=== PATIENT | male | born 1935 | race Caucasian/White ===

== ENCOUNTER → 2017-04-07 | Outpatient (CLI) | payer MEDICARE ==
[~2017-04-07] MED LIST: AMOXICILLIN500 MG PO; Amoxicillin/Clavulanate K PO; CELEBREX200 MG PO; CLOPIDOGREL75 MG PO; ELAVIL25 MG PO; FIORINAL PO; GABAPENTIN300 MG PO; LEVAQUIN500 MG PO; MAGNESIUM OXID400 MG PO; NORVASC5 MG PO; PENICILLIN VK PO; PROTONIX40 MG/ML PO; TAMSULOSIN HCL0.4 MG; TAMSULOSIN HCL0.4 MG PO; TIZANIDINE HCL4 M1; XARELTO10 MG PO; Z HYTRIN PO; Z.0.FLAGYL500 MG PO; Z.0.LEVAQUIN500 MG PO; Z.0.LISINOPRIL-HCT1 PO; Z.0.ZOCOR20 MG PO; Z.0.ZYLOPRIM300 MG PO; [UNRECOGNIZED DRUG - OTHER] PO
--- NOTE | 2017-04-07 15:10 | Diagnostic Imaging Report ---
PROCEDURE: CT CHEST WITHOUT CONTRAST CT scan of the chest WITHOUT intravenous contrast, using standard protocol. TECHNIQUE: The chest was scanned utilizing a multidetector helical scanner from the apex to the level of the adrenal glands. No IV contrast was administered. Coronal and sagittal multiplanar reformations were obtained. COMPARISON: Chest CT 09/28/2016 INDICATIONS: SHORT OF BREATH, LUNG INFECTION FINDINGS: Lines/tubes: None. Lungs and Airways: Increase in the diffuse tiny centrilobular nodules in the right lung (for example now in the right upper lobe on series 3 image 42 compared with series 3 image 44 on the prior exam). Previous patchy ground glass opacities are not visualized. Similar appearing patchy ground glass opacities are noted in the right anterior apex (series 3 image 22), posterior right upper lobe (series 3 image 30). No evidence of a focal consolidative pneumonia. Stable 4 mm nodule in the superior segment of the left lower lobe (series 3 image 60). The patchy ground glass opacities in the left lung have resolved. Pleura: The pleural spaces are clear. Heart and mediastinum: Stable coarse calcification which may be in the lateral right thyroid lobe or adjacent to the thyroid. No significant mediastinal, hilar or axillary lymphadenopathy is seen. The heart and pericardium are within normal limits. Slight ascending aortic ectasia measuring 4 cm. Main pulmonary artery measures 2.7 cm. Three-vessel coronary artery calcifications. Soft tissues: Normal. Abdomen: Limited views of the upper abdomen show no abnormality within the visualized unenhanced liver, spleen, pancreas, or kidneys. The visualized portions of the adrenal glands are normal. Gastrojejunostomy sutures are partially visualized related to gastric bypass. Bones: No acute or aggressive osseous lesions. Multiple old right anterior rib fractures. Stable mild wedge deformity of a T11. Degenerative changes of the lower cervical spine and cervicothoracic junction. IMPRESSION: 1. Worsening centrilobular nodules in the right lung suggestive of worsening atypical infection or inflammation. Patchy ground glass opacities in the right lung persist and have resolved in the left lung. 2. Mild ascending aortic ectasia. 3. Stable T11 wedge deformity. Dictated by: Gary Lord M.D. on 04/07/2017 at 15:09 Electronically approved by: Gary Lord M.D. on 04/07/2017 at 15:09
== END ==
LOC: CT 13:53
PROVIDERS: ATTEND Internal Medicine Pulmonary Disease
DX: J84.10 Pulmonary fibrosis, unspecified (principal)
CPT/HCPCS: 71250

== ENCOUNTER → 2017-04-22 | Day surgery (SDC) | payer MEDICARE ==
[2017-04-21 12:48] LABS: BASOPHILS # (AUTO) 0.1 (0.0-0.1); BASOPHILS % 0.8 % (0.0-1.0); EOSINOPHILS # (AUTO) 0.3 (0.0-0.4); EOSINOPHILS % 3.3 % (0.0-6.0); HEMATOCRIT 38.2 % (38.2-49.6); LYMPHOCYTES # (AUTO) 2.1 (1.0-3.2); LYMPHOCYTES % 20.8 % (18.0-39.1); MEAN CORPUSCULAR HEMOGLOBIN 23.1 pg (28-32); MEAN CORPUSCULAR HGB CONC 28.8 g/dL (31-35); MEAN CORPUSCULAR VOLUME 80.3 fL (81-99); MONOCYTES # (AUTO) 0.9 (0.2-0.8); MONOCYTES % 8.5 % (4.4-11.3); NEUTROPHILS # (AUTO) 6.7 (2.1-6.9); NEUTROPHILS % 66.3 % (38.7-80.0); PLATELET COUNT 173 x10e3/uL (140-360); RED BLOOD COUNT 4.76 x10e6/uL (4.3-5.7)
[2017-04-21 14:19] LABS: POLYCHROMASIA FEW; RBC MORPHOLOGY COMMENT NORMAL
[2017-04-21 14:20] LABS: ANISOCYTOSIS SLIGHT; HYPOCHROMASIA SLIGHT; PLATELET ESTIMATE ADEQUATE; PLATELET MORPHOLOGY COMMENT NORMAL
--- NOTE | 2017-04-21 18:20 | Diagnostic Imaging Report ---
PROCEDURE: X-RAY CHEST, TWO VIEWS COMPARISON: Chest x-ray 09/01/15, CT chest 04/07/17 INDICATIONS: PRE-ADMISSION CHEST X-RAY FOR LUNG INFECTION FINDINGS: LUNGS: Diffusely hyperinflated. A calcified granuloma in the posterior costophrenic angle is stable. No soft tissue mass or infiltrate by x-ray. Vascular markings are normal. PLEURA: No effusions or pneumothorax. HEART \T\ MEDIASTINUM: The heart is within normal size-limits. There are prominent pericardial fat pads. Mild aortic ectasia is stable. BONES \T\ SOFT TISSUES: Diffusely demineralized. No focal osseous lesions. CONCLUSION: Diffuse hyperinflation suggestive of COPD. No acute cardiopulmonary process. Dictated by: Toro Castro M.D. on 04/21/2017 at 18:20 Electronically approved by: Toro Castro M.D. on 04/21/2017 at 18:20
[~2017-04-22] MED LIST changes: +EPINEPHRINE HCL INJ 1 MG/ML AMP ONE; +FENTANYL CITRATE/PF 100MCG/2 ML INJ ONE; +LIDOCAINE HCL 2% 30 ML TUBE ONE; +LIDOCAINE HCL 2% LOCAL INJ 5 ML SDV VIAL INJ ONE; +LIDOCAINE HCL 4% 50 ML BTL ONE; +MIDAZOLAM HCL 2 MG/2 ML VIAL ONE; +OXYMETAZOLINE HCL 0.05% NAS 1 SPRAY BTL ONE; +PROPOFOL IV EMULSION 10 MG/ML 20 ML VIAL ONE; +SEVOFLURANE INHAL SOLN 250 ML PEN BTL ONE
--- OUTSIDE RECORDS SUMMARY | 2017-04-22 12:38 | XMS REPORT ---
Author Author [facility] Address Unknown Phone Unavailable Care Team Providers Care A Auxiliary Name Role Phone NEO VEGA Unavailable Unavailable Problems This patient has no known problems. Allergies, Adverse Reactions, Alerts This patient has no known allergies or adverse reactions. Medications This patient has no known medications. Results Test Description Test Time Test Comments Text Results Atomic Results Result Comments CHEST 2 VIEWS [place] [address] Patient Name: ESPINOZA WEAVER MR #: [id number] : 1935 Age/Sex: 81/M Req #: [id number] Adm Physician: Ordered by: MARY ELLEN SAMANIEGO MD Report #: [id number] Location: ENDO Room/Bed: Procedure: [id number] DX/CHEST 2 VIEWS Exam Date: 04/21/17 Exam Time : 1255 REPORT STATUS: Signed PROCEDURE: X-RAY CHEST, TWO VIEWS COMPARISON: Chest x-ray 09/01/15, CT chest 04/07/17 INDICATIONS: PRE- ADMISSION CHEST X-RAY FOR LUNG INFECTION FINDINGS: LUNGS: Diffusely hyperinflated. A calcified granuloma in the posterior costophrenic angle is stable. No soft tissue mass or infiltrate by x-ray. Vascular markings are normal. PLEURA: No effusions or pneumothorax. HEART T MEDIASTINUM: The heart is within normal size-limits. There are prominent pericardial fat pads. Mild aortic ectasia is stable. BONES T SOFT TISSUES: Diffusely demineralized. No focal osseous lesions. CONCLUSION: Diffuse hyperinflation suggestive of COPD. No acute cardiopulmonary process. Dictated by: Asad Castro M.D. on 01/2018 at 18:20 Electronically approved by: Asad Castro M.D. on 01/2018 at 18:20 Dictated By: ASAD CASTRO MD 19 Transcribed By : DAKOTA on 04/21/171819 COPY TO: MARY ELLEN SAMANIEGO MD CT CHEST WO [place] [address] Patient Name: ESPINOZA WEAVER MR #: [id number] : 1935 Age/Sex: 81/M Req #: [id number] Adm Physician: Ordered by: NEO VEGA MD Report #: [id number] Location: CT Room/Bed: Procedure: [id number] CT/ CT CHEST WO Exam Date: 04/07/17 Exam Time: 1422 REPORT STATUS: Signed PROCEDURE: CT CHEST WITHOUT CONTRAST CT scan of the chest WITHOUT intravenous contrast, using standard protocol. TECHNIQUE: The chest was scanned utilizing a multidetector helical scanner from the apex to the level of the adrenal glands. No IV contrast was administered. Coronal and sagittal multiplanar reformations were obtained. COMPARISON: Chest CT 09/28/2016 INDICATIONS: SHORT OF BREATH, LUNG INFECTION FINDINGS: Lines/tubes: None. Lungs and Airways: Increase in the diffuse tiny centrilobular nodules in the right lung (for example now in the right upper lobe on series 3 image 42 compared with series 3 image 44 on the prior exam). Previous patchy ground glass opacities are not visualized. Similar appearing patchy ground glass opacities are noted in the right anterior apex (series 3 image 22), posterior right upper lobe (series 3 image 30). No evidence of a focal consolidative pneumonia. Stable 4 mm nodule in the superior segment of the left lower lobe (series 3 image 60). The patchy ground glass opacities in the left lung have resolved. Pleura: The pleural spaces are clear. Heart and mediastinum: Stable coarse calcification which may be in the lateral right thyroid lobe or adjacent to the thyroid. No significant mediastinal, hilar or axillary lymphadenopathy is seen. The heart and pericardium are within normal limits. Slight ascending aortic ectasia measuring 4 cm. Main pulmonary artery measures 2.7 cm. Three-vessel coronary artery calcifications. Soft tissues: Normal. Abdomen: Limited views of the upper abdomen show no abnormality within the visualized unenhanced liver, spleen, pancreas, or kidneys. The visualized portions of the adrenal glands are normal. Gastrojejunostomy sutures are partially visualized related to gastric bypass. Bones: No acute or aggressive osseous lesions. Multiple old right anterior rib fractures. Stable mild wedge deformity of a T11. Degenerative changes of the lower cervical spine and cervicothoracic junction. IMPRESSION: 1. Worsening centrilobular nodules in the right lung suggestive of worsening atypical infection or inflammation. Patchy ground glass opacities in the right lung persist and have resolved in the left lung. 2. Mild ascending aortic ectasia. 3. Stable T11 wedge deformity. Dictated by: Gary Kaufman M.D. on 04/07/2017 at 15: 09 Electronically approved by: Gary Kaufman M.D. on 04/07/2017 at 15: 09 Dictated By: GARY KAUFMAN MD [id number] Transcribed By: DAKOTA on 04/07/17 1501 COPY TO: NEO VEGA MD CT CHEST WO [place] [address] Patient Name: ESPINOZA WEAVER MR #: [id number] : 1935 Age/Sex: 81/M Req #: [id number] Adm Physician: Ordered by: NEO VEGA MD Report #: [id number] Location: CT Room/Bed: Procedure: [id number] CT/ CT CHEST WO Exam Date: 12/24/16 Exam Time: 1205 REPORT STATUS: Signed EXAM: CT Chest WITHOUT contrast INDICATION: Dyspnea COMPARISON: 09/18/2016 TECHNIQUE: The Chest was scanned utilizing a multidetector helical scanner without the use of IV contrast. Coronal and sagittal reformations were obtained. Reformatted axial MIP images were obtained and reviewed. IV CONTRAST: None COMPLICATIONS: None RADIATION DOSE: Total DLP: 528 mGy*cm Estimated effective dose: (DLP x 0.015 x size factor) mSv CTDIvol has been reviewed. It is below the limits set by the Radiation Protocol Committee (RPC). FINDINGS: Lines and Tubes: None. Lower Neck: Visualized thyroid gland unremarkable. Heart and Great Vessels: The aorta and main pulmonary artery measure 32 and 31 mm. respectively. The cardiothoracic radio measures 12/29. No pericardial effusion present. Advanced coronary artery vascular calcifications present with probable PCI changes, incompletely evaluated due to motion. Lymph Nodes: Scattered small mediastinal lymph nodes, not enlarged by size criteria. Hilar regions suboptimally evaluated given lack of IV contrast. Lungs: No pleural effusion. There is no pneumothorax. Trachea and central bronchi are unremarkable. Moderate predominantly tree-in-bud opacities present throughout the right upper lobe, middle lobe, and lower lobe, similar to slightly worse. No focal consolidation identified. Upper abdomen: Post surgical changes of the bowel. Otherwise no acute findings. Bones and Soft Tissues: No acute findings. IMPRESSION: 1. Predominantly tree-in-bud opacities right upper lobe, middle lobe, and lower lobe, slightly progressed. Findings most consistent with an acute infectious/inflammatory process such as bronchiolitis. Atypical processes such as mycobacterium cannot be excluded. Signed by: Dr. Rio Moss MD on 12/25/2016 1:14 PM Dictated By: RIO MOSS MD 13 Transcribed By: JERI on 12/25/161313 COPY TO: NEO VEGA MD
[2017-04-22 13:00] LABS: INR 1.06
[2017-04-22 13:01] LABS: PARTIAL THROMBOPLASTIN TIME 23.6 seconds (23.8-35.5)
--- NOTE | 2017-04-22 15:33 | History and Physical ---
This is a patient of Dr. Scooter Archuleta (Buddy) and Dr. Luc oTny. Patient with a history of persistent dyspnea, atypical pulmonary infiltrates and pneumonia. Recently completed long-term course of antibiotics with a persistent right upper lobe nodular infiltrate. Other ground-glass infiltrates have cleared. He has a history of renal colic. FAMILY HISTORY: Positive for cancer. SOCIAL HISTORY: The patient has smoked and has chewed tobacco. 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 . PAST HISTORY: Had right nephrectomy in 1964 and gastric surgery. Hypertension and renal stones. He remains dyspneic, but his cough has resolved. VITAL SIGNS: Temperature 97.8, blood pressure 129/69. O2 saturation 93% on room air. HOME MEDICATIONS: Included allopurinol, Celebrex, Neurontin, Incruse, lisinopril, omeprazole, Xarelto, tizanidine, Flomax and simvastatin. PHYSICAL EXAMINATION GENERAL: Burly white male in no acute distress. HEENT: Head is normocephalic and atraumatic. NECK: Flanagan neck. CARDIOVASCULAR: Regular rhythm. RESPIRATORY: Diminished breath sounds but clear. ABDOMEN: Nontender. EXTREMITIES: Not edematous. PLAN: Proceed with bronchoscopy and lavage. Risks with probable yield of transbronchial biopsy were discussed. He agreed to forego this and to proceed with bronchoscopy and lavage. If endobronchial lesion was found, bronchial biopsy was to be permitted. Job#: [id number]
--- NOTE | 2017-04-22 16:02 | Operative Report ---
DATE OF PROCEDURE: April 22, [address] Scooter Archuleta, Dr. Tony. Patient with dyspnea, slowly resolving pneumonia over many months, persistent micronodular right upper lobe infiltrate. MAC anesthesia was provided by Dr. Bundy. Patient was bronchoscoped through a number 5 LMA. There was consistent weakness of the bronchial tubes, moderate bronchial malacia and collapse. Moderate amount of thick secretions noted above the cords and in the bronchial tree. No obstructing lesions were seen. Lavage was performed in the right upper lobe bronchial orifice. Patient tolerated the procedure well. Job#: [id number] EV
[2017-04-22 16:23] LABS: BODY FLUID APPEARANCE CLOUDY; BODY FLUID COLOR RED; BODY FLUID TYPE BRONCHIAL WASHING
[2017-04-22 16:24] LABS: RBC,BODY FLUID 4955 cells/uL; WBC,BODY FLUID 752 cells/uL
[2017-04-22 16:47] LABS: EOSINOPHILS,BODY FLUID 1 %; LYMPHOCYTES,BODY FLUID 6 %; MONO/MACROPHG,BODY FLUID 7 %; NEUTROPHILS,BODY FLUID 86 %
== END | disposition home or self-care (01) ==
LOC: OR 12:36
PROVIDERS: ATTEND Internal Medicine Pulmonary Disease
DX: J44.9 Chronic obstructive pulmonary disease, unspecified (principal); I25.10 Atherosclerotic heart disease of native coronary artery without angina pectoris; I10 Essential (primary) hypertension; Z01.810 Encounter for preprocedural cardiovascular examination; Z01.812 Encounter for preprocedural laboratory examination; Z01.818 Encounter for other preprocedural examination; Z90.5 Acquired absence of kidney; Z87.01 Personal history of pneumonia (recurrent); Z87.891 Personal history of nicotine dependence; Z80.9 Family history of malignant neoplasm, unspecified
CPT/HCPCS: 31624; 36415 ×2; 71046; 85025; 85610; 85730; 87071; 87075; 87102; 87116; 87186; 87205; 87206 ×2; 88112; 88305; 89051; 93005; J2001; J2250; 31623; J0171

== ENCOUNTER 2017-12-18 15:56 | Emergency (ER) | payer MEDICARE ==
[~2017-12-18] VITALS: Ht 177.8 cm; Wt 83.9 kg
[~2017-12-18 15:56] MED LIST changes: -EPINEPHRINE HCL INJ 1 MG/ML AMP ONE; -FENTANYL CITRATE/PF 100MCG/2 ML INJ ONE; -LIDOCAINE HCL 2% 30 ML TUBE ONE; -LIDOCAINE HCL 2% LOCAL INJ 5 ML SDV VIAL INJ ONE; -LIDOCAINE HCL 4% 50 ML BTL ONE; -MIDAZOLAM HCL 2 MG/2 ML VIAL ONE; -OXYMETAZOLINE HCL 0.05% NAS 1 SPRAY BTL ONE; -PROPOFOL IV EMULSION 10 MG/ML 20 ML VIAL ONE; -SEVOFLURANE INHAL SOLN 250 ML PEN BTL ONE
[2017-12-18 17:41] LABS: BILIRUBIN,URINE NEGATIVE (NEGATIVE); CLARITY,URINE HAZY (CLEAR); COLOR,URINE YELLOW (YELLOW); KETONES,URINE NEGATIVE (NEGATIVE); LEUKOCYTE ESTERASE ,URINE NEGATIVE (NEGATIVE); NITRITE,URINE NEGATIVE (NEGATIVE); PROTEIN,URINE DIPSTICK NEGATIVE (NEGATIVE); URINE UROBILINOGEN 0.2 mg/dL (0.2 - 1)
[2017-12-18 17:42] LABS: BACTERIA,URINE FEW /HPF; EPITHELIAL CELLS,URINE FEW /LPF; RBC,URINE 0-5 /HPF (0-5); WBC,URINE (MAN) 0-5 /HPF (0-5)
[2017-12-18 20:51] LABS: BASOPHILS % 0.3 % (0.0-1.0); EOSINOPHILS # (AUTO) 0.1 (0.0-0.4); EOSINOPHILS % 0.4 % (0.0-6.0); HEMATOCRIT 33.2 % (38.2-49.6); HEMOGLOBIN 9.7 g/dL (14.0-18.0); LYMPHOCYTES # (AUTO) 1.2 (1.0-3.2); LYMPHOCYTES % 10.6 % (18.0-39.1); MEAN CORPUSCULAR HEMOGLOBIN 23.1 pg (28-32); MEAN CORPUSCULAR HGB CONC 29.2 g/dL (31-35); MONOCYTES % 8.8 % (4.4-11.3); NEUTROPHILS % 79.4 % (38.7-80.0); PLATELET COUNT 218 x10e3/uL (140-360); RED CELL DISTRIBUTION WIDTH 17.1 % (11.7-14.4)
[2017-12-18 21:03] LABS: ALBUMIN 3.9 g/dL (3.5-5.0); ALBUMIN/GLOBULIN RATIO 1.3 (0.8-2.0); ANION GAP 16.6 mmol/L (8-16); CALCIUM 9.3 mg/dL (8.4-10.2); CREATININE, SERUM 2.47 mg/dL (0.72-1.25); POTASSIUM 4.6 mmol/L (3.5-5.1)
[2018-01-09] MEDS ORDERED: POTASSIUM CITR10 MEQ PO (12:26)
[2018-01-09] MEDS ORDERED: MAGNESIUM OXID400 MG PO (12:26)
== END 2017-12-18 22:18 | disposition home or self-care (01) ==
LOC: ER 15:56
DX: R30.0 Dysuria (principal); R33.9 Retention of urine, unspecified; N40.1 Benign prostatic hyperplasia with lower urinary tract symptoms; I10 Essential (primary) hypertension; E78.5 Hyperlipidemia, unspecified; M10.9 Gout, unspecified
CPT/HCPCS: 36415; 51700; 80053; 81001; 85025; 87086; 99283

== ENCOUNTER → 2018-01-12 | Day surgery (SDC) | payer MEDICARE ==
[2018-01-09 13:03] LABS: BASOPHILS # (AUTO) 0.1 (0.0-0.1); BASOPHILS % 0.8 % (0.0-1.0); EOSINOPHILS # (AUTO) 0.2 (0.0-0.4); EOSINOPHILS % 2.5 % (0.0-6.0); HEMOGLOBIN 10.3 g/dL (14.0-18.0); LYMPHOCYTES # (AUTO) 1.4 (1.0-3.2); MEAN CORPUSCULAR HEMOGLOBIN 22.2 pg (28-32); MEAN CORPUSCULAR HGB CONC 28.6 g/dL (31-35); MEAN CORPUSCULAR VOLUME 77.4 fL (81-99); MONOCYTES # (AUTO) 0.7 (0.2-0.8); MONOCYTES % 7.7 % (4.4-11.3); NEUTROPHILS # (AUTO) 6.5 (2.1-6.9); NEUTROPHILS % 72.8 % (38.7-80.0); PLATELET COUNT 284 x10e3/uL (140-360); RED BLOOD COUNT 4.65 x10e6/uL (4.3-5.7); RED CELL DISTRIBUTION WIDTH 16.2 % (11.7-14.4)
[2018-01-09 13:24] LABS: ANION GAP 12.5 mmol/L (8-16); BLOOD UREA NITROGEN 16 mg/dL (7-26); BUN/CREATININE RATIO 14 (6-25); CALCIUM 9.2 mg/dL (8.4-10.2); CARBON DIOXIDE 29 mmol/L (22-29); CHLORIDE 103 mmol/L (98-107); CREATININE, SERUM 1.13 mg/dL (0.72-1.25); EST GLOMERULAR FILTRATION RATE > 60 ML/MIN (60-); GLUCOSE 99 mg/dL (74-118); POTASSIUM 4.5 mmol/L (3.5-5.1); SODIUM 140 mmol/L (136-145)
--- NOTE | 2018-01-09 13:46 | Diagnostic Imaging Report ---
EXAMINATION: PA and lateral views of the chest. COMPARISON: CT chest without contrast 12/24/2016 CLINICAL HISTORY: Preoperative study urological procedure DISCUSSION: Lungs are well-inflated. No focal consolidation, pleural effusion, or pneumothorax. Stable cardiomediastinal contour with tortuosity and atherosclerotic calcification of the thoracic aorta. No acute osseous abnormality. IMPRESSION: No acute cardiopulmonary abnormalities. Signed by: Dr. Elbert Degroot M.D. on 01/09/2018 1:43 PM
[~2018-01-12] MED LIST changes: +BELLADONNA/OPIUM 60 MG SUPP PR ONE; +CEFTRIAXONE SOD 1 GM VIAL ONE; +DEXAMETHASONE SOD PHOS INJ 4 MG/ML VIAL ONE; +EPHEDRINE SULFATE INJ 50 MG/10 ML SYR ONE; +FENTANYL CITRATE/PF 100MCG/2 ML INJ ONE; +GENTAMICIN 80MG/NS 100 ML 200 ML IV ONE; +IOPAMIDOL 610MG/1ML 300 MG/ML VIAL IV ONE; +LIDOCAINE HCL 1% 2 ML AMP ONE; +LIDOCAINE HCL 2% LOCAL INJ 5 ML SDV VIAL INJ ONE; +MORPHINE SULFATE 2 MG/ML SYR ONE; +ONDANSETRON HCL INJ 2 MG/ML VIAL ONE; +POTASSIUM CITR10 MEQ PO; +PROPOFOL IV EMULSION 10 MG/ML 20 ML VIAL ONE; +SEVOFLURANE INHAL SOLN 250 ML PEN BTL ONE
[2018-01-12 09:20] VITALS: BP 124/78
--- NOTE | 2018-01-12 21:54 | Operative Report ---
DATE OF PROCEDURE: January 12, 2018 PREOPERATIVE DIAGNOSES 1. Obstructive BPH. 2. Urinary tract infections. POSTOPERATIVE DIAGNOSES 1. Obstructive BPH. 2. Urinary tract infections. OPERATIONS PERFORMED 1. Cystourethroscopy with bilateral ureteral catheterization and retrograde ureteropyelography (separate procedure performed for urinary tract infections). 2. Interpretation of retrograde ureteropyelography. 3. Supervision of fluoroscopy. No radiologist present. 4. Cystourethroscopy with transurethral resection of the prostate utilizing the plasma button electrode. ANESTHESIA: General. COMPLICATIONS: None. CLINICAL SUMMARY: Christopher Osborne is an 82-year-old man with a solitary left kidney. 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 The patient has a history of prior urolithiasis obstructing his solitary left kidney requiring stenting as well as ureteroscopic management. The patient has failed to follow up as schedule and has failed to reschedule. He presented emergently in urinary retention, was evaluated, was by urodynamic study found to have a high pressure, low flow finding on a pressure volume study. The patient is brought to the operating room today for the above procedures. He is aware of the risks of bleeding, infection, injury to adjacent structures, incontinence, impotence, need for additional procedures and elected to proceed. OPERATIVE PROCEDURE IN DETAIL: Informed consent was verified. Christopher Osborne was properly identified, taken to the operating room, placed on the cystoscopy table in supine position. Anesthesia was uneventfully begun. The patient was then carefully and gently re-positioned in the dorsal lithotomy position with all pressure points well padded. His genitalia were prepared and draped in usual sterile fashion. The 22.5-Montenegrin cystourethroscope sheath with the visual obturator in place was atraumatically inserted into the patient's urethra. It was guided down the urethra which exhibited wide caliber nonobstructing urethral stricture disease throughout the penile urethra. We passed the normal sphincteric region, went through the prostate bed which was significant for bilobar prostatic hypertrophy with kissing lateral lobes and visual obstruction. We entered the patient's bladder and panendoscopy revealed grade 1 trabeculations; but no tumors, no stones, no diverticula. Normally positioned and configured ureteral orifices were identified. An 8-Montenegrin catheter was used to cannulate each ureter and retrograde ureteral pyelograms were performed. Interpretation of retrograde ureteropyelography: Contrast was instilled in retrograde fashion bilaterally. The left side was unremarkable. There were no stones, no tumors. The calices were sharp and delicate. There was no hydronephrosis. The ureter was unremarkable. Unobstructed drainage was observed. The right hand side exhibited an abrupt cutoff at the level of the proximal ureter corresponding to the prior nephrectomy. There were no suspicious filling defects and unobstructed drainage of this ureter was observed fluoroscopically. The cystoscope was withdrawn. Resectoscope was atraumatically placed. We utilized the plasma button electrode to vaporize the prostate from the bladder neck too, but never past the verumontanum and down to the surgical capsule. Pinpoint electrocautery was utilized to achieve hemostasis. There were numerous prostatic stones that were released from the junction between the transition and the peripheral zone at the apical region posteriorly on either side of the verumontanum. These stones were evacuated and discarded. The resectoscope was withdrawn. A Galarza catheter was placed. Placed on continuous irrigation with completely clear efflux. A belladonna and opium suppository was placed revealing a 35-g prostate, smooth, non-fluctuant without any nodules. The patient was then uneventfully reversed from anesthesia and taken to the recovery room in stable condition. There were no complications associated with the procedure. The patient tolerated the procedure well. Plans will be to discharge the patient home should he do well in the recovery room. Have him remove the catheter at home in 3 days and we plan to follow him up in several weeks to perform uroflowmetry and bladder ultrasonography in the office, and of course, I encouraged him to maintain urological followup on an ongoing basis in the future. Job#: [id number] cc:BETI CERON MD
== END | disposition home or self-care (01) ==
LOC: OR 05:06
PROVIDERS: ATTEND Urology
DX: N40.1 Benign prostatic hyperplasia with lower urinary tract symptoms (principal); N13.8 Other obstructive and reflux uropathy; R33.8 Other retention of urine; N17.9 Acute kidney failure, unspecified; N39.0 Urinary tract infection, site not specified; N35.919 Unspecified urethral stricture, male, unspecified site; N42.0 Calculus of prostate; N32.89 Other specified disorders of bladder; Q54.9 Hypospadias, unspecified; I10 Essential (primary) hypertension; Z90.5 Acquired absence of kidney; Z01.810 Encounter for preprocedural cardiovascular examination; Z01.812 Encounter for preprocedural laboratory examination; Z01.818 Encounter for other preprocedural examination; Z79.02 Long term (current) use of antithrombotics/antiplatelets; Z99.81 Dependence on supplemental oxygen; Z86.718 Personal history of other venous thrombosis and embolism; Z87.442 Personal history of urinary calculi
CPT/HCPCS: 36415; 52005; 52601; 71046; 74420; 80048; 85025; 93005; C1758; J0696; J1100; J1580; J2001 ×2; J2270; J2405; J2704; Q9967

== ENCOUNTER → 2018-04-07 | Outpatient (CLI) | payer MEDICARE ==
[~2018-04-07] MED LIST changes: -BELLADONNA/OPIUM 60 MG SUPP PR ONE; -CEFTRIAXONE SOD 1 GM VIAL ONE; -DEXAMETHASONE SOD PHOS INJ 4 MG/ML VIAL ONE; -EPHEDRINE SULFATE INJ 50 MG/10 ML SYR ONE; -FENTANYL CITRATE/PF 100MCG/2 ML INJ ONE; -GENTAMICIN 80MG/NS 100 ML 200 ML IV ONE; -IOPAMIDOL 610MG/1ML 300 MG/ML VIAL IV ONE; -LIDOCAINE HCL 1% 2 ML AMP ONE; -LIDOCAINE HCL 2% LOCAL INJ 5 ML SDV VIAL INJ ONE; -MORPHINE SULFATE 2 MG/ML SYR ONE; -ONDANSETRON HCL INJ 2 MG/ML VIAL ONE; -PROPOFOL IV EMULSION 10 MG/ML 20 ML VIAL ONE; -SEVOFLURANE INHAL SOLN 250 ML PEN BTL ONE
--- NOTE | 2018-04-07 15:14 | Diagnostic Imaging Report ---
EXAMINATION: CT scan of the chest without contrast. TECHNIQUE: Spiral CT images of the chest were performed from the lung apices to the level of the adrenal glands. No intravenous contrast was administered per referring physician request. Coronal and sagittal reformatted images were obtained. COMPARISON: 12/24/2016 CLINICAL HISTORY:Dyspnea on exertion DISCUSSION: ABSENCE OF INTRAVENOUS CONTRAST DECREASES SENSITIVITY FOR DETECTION OF FOCAL LESIONS AND VASCULAR PATHOLOGY. LINES/TUBES: None. LUNGS AND AIRWAYS: As before, fairly extensive tree-in-bud nodular opacities involving the right upper, right middle, and right lower lobes, with relative sparing of the apical segment of the right upper lobe and superior segment of the right lower lobe. Less extensive findings are noted in the perihilar regions of the left upper and lower lobes. Scattered groundglass nodules in the left upper lobe for example series 3 image 42. Trachea, mainstem bronchi, lobar, and segmental bronchi are patent. Calcified granuloma right lower lobe. PLEURA: No pneumothorax or pleural effusions. HEART AND MEDIASTINUM: Visualized portions of the thyroid gland are normal. No ectasia or aneurysmal dilatation of the thoracic aorta. Pulmonary outflow tract is of normal caliber. Atherosclerotic coronary artery calcifications. No pericardial effusion. LYMPH NODES: No axillary, hilar, or mediastinal lymphadenopathy. ABDOMEN: Visualized portions of the liver, gallbladder, spleen, pancreas, and adrenals are unremarkable. Partially visualized exophytic lesion projecting from the upper pole of the left kidney with average internal attenuation 40 Hounsfield units. Postsurgical changes of the distal stomach. BONES AND SOFT TISSUES: No focal soft tissue abnormalities. No osseous destructive lesions. Stable mild anterior compression deformity of the lower thoracic spine. IMPRESSION: Slight progression of predominant tree-in-bud opacities involving the right upper, middle, and lower lobes relative to the examination 12/24/2016. Findings compatible with inflammatory bronchiolitis or atypical mycobacterial infection. Bronchoscopy may be of benefit for further evaluation given chronicity and/or recurrence of findings. Atherosclerotic vascular disease. Partially visualized exophytic lesion projecting from the left kidney, which may reflect a hyperdense cyst or solid mass. CT or MRI of the abdomen renal mass protocol or renal ultrasound may be considered for further evaluation. Signed by: Dr. Elbert Degroot M.D. on 04/07/2018 3:11 PM
== END ==
LOC: CT 13:22
PROVIDERS: ATTEND Internal Medicine Pulmonary Disease
DX: R06.09 Other forms of dyspnea (principal)
CPT/HCPCS: 71250

== ENCOUNTER → 2018-07-01 | Outpatient (CLI) | payer MEDICARE ==
--- NOTE | 2018-07-01 15:56 | Diagnostic Imaging Report ---
Exam: Abdominal film Clinical History: Absent right kidney, kidney stones Comparison: None. DISCUSSION: No suspicious calcifications are identified projecting over the left renal shadow or expected ureteral course. Bowel gas pattern shows no dilated, air-filled loops of bowel. No mass effect or organomegaly. Multilevel degenerative disc changes of the lumbar spine. IMPRESSION: No plain film evidence of urolithiasis. Signed by: Dr. Elbert Degroot M.D. on 07/01/2018 3:52 PM
== END ==
LOC: RAD 14:53
PROVIDERS: ATTEND Urology
DX: N20.0 Calculus of kidney (principal)
CPT/HCPCS: 74018

== ENCOUNTER → 2018-11-25 | Outpatient (CLI) | payer MEDICARE ==
--- NOTE | 2018-11-25 14:57 | Diagnostic Imaging Report ---
EXAM: CT Chest WITHOUT intravenous contrast 11/25/2018 1:08 PM INDICATION: Shortness of breath COMPARISON: Chest CT of 04/07/2018 TECHNIQUE: Chest was scanned utilizing a multidetector helical scanner from the lung apex through the level of the adrenal glands without administration of IV contrast. Coronal and sagittal reformations were obtained. Routine protocol was performed. IV CONTRAST: None RADIATION DOSE: Total DLP: 454.3 mGy*cm. Dose modulation, iterative reconstruction, and/or weight based adjustment of the mA/kV was utilized to reduce the radiation dose to as low as reasonably achievable. COMPLICATIONS: None FINDINGS: LINES/ TUBES: None. LUNGS AND AIRWAYS: The central airways are patent. Mild right greater than left bronchial wall thickening. Scattered right lower lobe predominant centrilobular and tree-in-bud nodules. This is improved compared to the prior chest CT of 04/07/2018. Bilateral lower lobe dependent subsegmental atelectasis right greater than left. Left lower lobe 5 mm pulmonary nodule (series 3 image 65) is unchanged dating back to at least 12/24/2016. No new suspicious pulmonary nodules. Right lower lobe calcified granuloma. PLEURA: No pleural effusion or pneumothorax. HEART AND MEDIASTINUM: The thyroid gland is normal. No mediastinal, hilar or axillary lymphadenopathy. The heart is not enlarged. No pericardial effusion. Diffuse atherosclerotic calcifications involve the coronary arteries with scattered athetotic calcifications of the aorta and great vessels. The thoracic aorta is ectatic, measuring up to 4.1 cm.. UPPER ABDOMEN: Limited noncontrast images of the upper abdomen demonstrate no focal abnormality of the partially visualized liver, gallbladder, spleen, adrenals, or pancreas. The kidneys are not visualized. BONES: No acute osseous injury. No suspicious lytic or blastic lesions. SOFT TISSUES: Unremarkable. IMPRESSION: Interval improvement in right lung lower lobe predominant centrilobular and tree-in-bud nodules, likely reflecting a resolving infectious/inflammatory process. Left lower lobe 5 mm pulmonary nodule is unchanged dating back to at least 12/24/2016 and is thus likely benign. No further imaging follow-up is needed. Atherosclerotic calcifications including of the coronary arteries. Signed by: Shaw Davidson MD on 11/25/2018 2:53 PM
== END ==
LOC: CT 13:01
PROVIDERS: ATTEND Internal Medicine Pulmonary Disease
DX: R06.02 Shortness of breath (principal)
CPT/HCPCS: 71250

== ENCOUNTER → 2019-04-06 | Outpatient (CLI) | payer MEDICARE ==
--- NOTE | 2019-04-06 14:10 | Diagnostic Imaging Report ---
Renal ultrasound Clinical History: Renal failure Discussion: Sonographic evaluation of the kidneys is performed. The right kidney has normal size and cortical echogenicity. The right kidney has been removed. The left kidney measures 13.5 cm in length. There is no hydronephrosis or shadowing renal calculus. In the inferior pole left kidney, a 1.8 x 1.6 x 1.7 cm anechoic lesion with thin internal septation is noted. No perinephric fluid collection is seen. Survey images of the bladder demonstrate no abnormality. Impression: 1. Status post right nephrectomy. 2. Left renal cysts measuring up to 1.8 cm in diameter within internal septation as described. Signed by: Dr. Amos Liang MD on 04/06/2019 2:08 PM
--- NOTE | 2019-04-06 14:36 | Diagnostic Imaging Report ---
Exam: KUB Clinical history: Acute renal failure Comparison: July 01, 2018 Findings: There is no evidence of radiopaque stones along the course of bilateral renal collecting system. Mildly prominent air-filled small bowel loops are noted in the left upper quadrant which may represent ileus. There is no gross evidence of pneumoperitoneum. 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 Impression: 1. No radiographic evidence of nephrolithiasis. 2. Mildly prominent small bowel loops in the left upper quadrant which may represent ileus. Signed by: Dr. Amos Liang MD on 04/06/2019 2:34 PM
== END ==
LOC: US 13:17
PROVIDERS: ATTEND Urology
DX: N17.9 Acute kidney failure, unspecified (principal)
CPT/HCPCS: 74018; 76770

== ENCOUNTER 2019-07-30 07:51 | Inpatient (IN) | payer MEDICARE, OTHER ==
[~2019-07-30] VITALS: Ht 172.7 cm; Wt 90.7 kg
[2019-07-30 08:45] LABS: BASOPHILS # (AUTO) 0.1 (0.0-0.1); BASOPHILS % 0.4 % (0.0-1.0); EOSINOPHILS # (AUTO) 0.1 (0.0-0.4); EOSINOPHILS % 0.8 % (0.0-6.0); HEMATOCRIT 45.3 % (38.2-49.6); HEMOGLOBIN 14.8 g/dL (14.0-18.0); LYMPHOCYTES # (AUTO) 0.7 (1.0-3.2); LYMPHOCYTES % 4.8 % (18.0-39.1); MEAN CORPUSCULAR HEMOGLOBIN 29.7 pg (28-32); MEAN CORPUSCULAR HGB CONC 32.7 g/dL (31-35); MONOCYTES # (AUTO) 1.1 (0.2-0.8); MONOCYTES % 7.7 % (4.4-11.3); NEUTROPHILS # (AUTO) 12.7 (2.1-6.9); NEUTROPHILS % 85.9 % (38.7-80.0); PLATELET COUNT 172 x10e3/uL (140-360); RED BLOOD COUNT 4.98 x10e6/uL (4.3-5.7); RED CELL DISTRIBUTION WIDTH 13.3 % (11.7-14.4)
[2019-07-30] MEDS ORDERED: CEFEPIME 1GM/NS 0.9% 50 ML 50 ML IV STA (08:54)
--- NOTE | 2019-07-30 08:58 | Diagnostic Imaging Report ---
EXAMINATION: CHEST SINGLE (PORTABLE) INDICATION: Fever COMPARISON: Chest CT 11/25/2018 FINDINGS: LINES/TUBES:EKG leads overlie the chest. LUNGS:The lungs are moderately inflated. Patchy opacities throughout the right lung and at the left lung base. PLEURA:No pleural effusion or pneumothorax. MEDIASTINUM:The cardiomediastinal silhouette appears normal in size and shape. BONES/SOFT TISSUES:No acute osseous injury. ABDOMEN:No free air under the diaphragm. IMPRESSION: Patchy opacities in the right lung and left lung base are concerning for pneumonia in the proper clinical setting. Signed by: Shaw Davidson MD on 07/30/2019 8:55 AM
[2019-07-30] MEDS ORDERED: ACETAMINOPHEN 325 MG TAB PO ONE (09:00)
[2019-07-30 09:15] LABS: ALANINE AMINOTRANSFERASE 15 IU/L (0-55); ALBUMIN 3.1 g/dL (3.5-5.0); ALBUMIN/GLOBULIN RATIO 1.4 (0.8-2.0); ALKALINE PHOSPHATASE 64 IU/L (40-150); ANION GAP 11.7 mmol/L (8-16); BLOOD UREA NITROGEN 17 mg/dL (7-26); BUN/CREATININE RATIO 16 (6-25); CARBON DIOXIDE 23 mmol/L (22-29); CHLORIDE 110 mmol/L (98-107); CREATINE KINASE 142 IU/L (30-200); CREATININE, SERUM 1.04 mg/dL (0.72-1.25); EST GLOMERULAR FILTRATION RATE > 60 ML/MIN (60-); GLUCOSE 86 mg/dL (74-118); POTASSIUM 3.7 mmol/L (3.5-5.1); SODIUM 141 mmol/L (136-145)
[2019-07-30] MEDS ORDERED: SODIUM CHLORIDE 0.9% 1000ML 1,000 ML IV STA (10:05)
--- NOTE | 2019-07-30 10:11 | Emergency Department Note ---
History of Present Illnes History of Present Illness Chief Complaint: General Medicine Complaints History of Present Illness This is a 83 year old male arrives to the ED for confusion per family, patient known to have UTIs and has been having difficulty voiding. She noted to be febrile upon arrival concerns of possible urosepsis confirmed at 0950- (not at the start of this time). Historian: Patient Arrival Mode: [facility] Treatment NUT SORTER: IV Onset quality: unable to specify Progression: unable to specify Relieving factors: none Associated symptoms: Reports fever/chills Treatments prior to arrival: none Past Medical/Family History Physician Review I have reviewed the patient's past medical and family history. Any updates have been documented here. Past Medical History Recent Fever: Yes Clinical Suspicion of Infectio: Yes New/Unexplained Change in Ment: Yes Past Medical History: COPD Other Medical History: PATIENT HAD RIGHT KIDNEY REMOVED Other Surgery: EXPLORATORY LAP RIGHT NEPHRECTOMY JULY 06, 2015 STENT PLACED IN LEFT KIDNEY Social History Smoking Cessation: Never Smoker Alcohol Use: None Any Illegal Drug Use: No TB Exposure/Symptoms: No Physically hurt or threatened: No Family History Family history of heart diseas: No Other Last Tetanus: OOD Any Pre-Existing Lines (PICC,: No Is patient up to date on immun: Yes Last Flu: UNKNOWN Last Pneumovax: UNKNOWN Review of Systems ROS Narrative Unable to obtain ROS: Unable to obtain due to, altered mental status Review of Systems Constitutional: Reports as per HPI, Reports chills, Reports fever EENTM: Reports no symptoms Cardiovascular: Reports no symptoms Respiratory: Reports no symptoms Gastrointestinal: Reports no symptoms Genitourinary: Reports no symptoms Musculoskeletal: Reports no symptoms Integumentary: Reports no symptoms Neurological: Reports no symptoms Psychological: Reports no symptoms Endocrine: Reports no symptoms Hematological/Lymphatic: Reports no symptoms Physical Exam Related Data Allergies: Coded Allergies: No Known Drug Allergies (Verified Allergy, Mild, 08/06/15) Triage Vital Signs Vital Signs Date Time Temp Pulse Resp B/P (MAP) Pulse Ox O2 Delivery O2 Flow Rate FiO2 07/30/19 08:41 101.6 99 18 136/78 93 Physical Exam CONSTITUTIONAL Constitutional: Present well-developed, Present well-nourished, Present obese HENT HENT: Present normocephalic, Present atraumatic, Present oropharynx clear/moist, Present nose normal HENT L/R: Present left ext ear normal, Present right ext ear normal EYES Eyes: Reports PERRL, Reports conjunctivae normal NECK Neck: Present ROM normal PULMONARY Pulmonary: Present effort normal, Present breath sounds normal CARDIOVASCULAR Cardiovascular: Present regular rhythm, Present heart sounds normal, Present capillary refill normal, Present normal rate GASTROINTESTINAL Abdominal: Present soft, Present nontender, Present bowel sounds normal GENITOURINARY Genitourinary: Present exam deferred SKIN Skin: Present warm, Present dry MUSCULOSKELETAL Musculoskeletal: Present ROM normal NEUROLOGICAL Neurological: Present alert PSYCHOLOGICAL Results Laboratory Result Diagram: 07/30/19 0813 07/30/19 0813 Laboratory Laboratory Tests Test 07/30/19 09:20 07/30/19 08:13 Lactic Acid Level 2.4 mmol/L (0.5-2.0) White Blood Count 14.73 x10e3/uL (4.8-10.8) Red Blood Count 4.98 x10e6/uL (4.3-5.7) Hemoglobin 14.8 g/dL (14.0-18.0) Hematocrit 45.3 % (38.2-49.6) Mean Corpuscular Volume 91.0 fL (81-99) Mean Corpuscular Hemoglobin 29.7 pg (28-32) Mean Corpuscular Hemoglobin Concent 32.7 g/dL (31-35) Red Cell Distribution Width 13.3 % (11.7-14.4) Platelet Count 172 x10e3/uL (140-360) Neutrophils (%) (Auto) 85.9 % (38.7-80.0) Lymphocytes (%) (Auto) 4.8 % (18.0-39.1) Monocytes (%) (Auto) 7.7 % (4.4-11.3) Eosinophils (%) (Auto) 0.8 % (0.0-6.0) Basophils (%) (Auto) 0.4 % (0.0-1.0) Neutrophils # (Auto) 12.7 (2.1-6.9) Lymphocytes # (Auto) 0.7 (1.0-3.2) Monocytes # (Auto) 1.1 (0.2-0.8) Eosinophils # (Auto) 0.1 (0.0-0.4) Basophils # (Auto) 0.1 (0.0-0.1) Absolute Immature Granulocyte (auto 0.06 x10e3/uL (0-0.1) Sodium Level 141 mmol/L (136-145) Potassium Level 3.7 mmol/L (3.5-5.1) Chloride Level 110 mmol/L (98-107) Carbon Dioxide Level 23 mmol/L (22-29) Anion Gap 11.7 mmol/L (8-16) Blood Urea Nitrogen 17 mg/dL (7-26) Creatinine 1.04 mg/dL (0.72-1.25) Estimat Glomerular Filtration Rate > 60 ML/MIN (60-) BUN/Creatinine Ratio 16 (6-25) Glucose Level 86 mg/dL (74-118) Calcium Level 7.0 mg/dL (8.4-10.2) Total Bilirubin 0.8 mg/dL (0.2-1.2) Aspartate Amino Transf (AST/SGOT) 17 IU/L (5-34) Alanine Aminotransferase (ALT/SGPT) 15 IU/L (0-55) Alkaline Phosphatase 64 IU/L (40-150) Creatine Kinase 142 IU/L (30-200) Creatine Kinase MB 2.20 ng/mL (0-5.0) Troponin I 0.014 ng/mL (0-0.300) Total Protein 5.3 g/dL (6.5-8.1) Albumin 3.1 g/dL (3.5-5.0) Globulin 2.2 g/dL (2.3-3.5) Albumin/Globulin Ratio 1.4 (0.8-2.0) Lab results reviewed: Yes Imaging Imaging results reviewed: Yes Impressions IMPRESSION: Patchy opacities in the right lung and left lung base are concerning for pneumonia in the proper clinical setting. Critical Care Time Total Critical Care Time (min): 45 Critical care time exclusive o: separately billable procedures Critcal care necessary due to: sepsis Assessment & Plan Medical Decision Making MDM Severe Sepsis Time: 949 1. Source (time: 854 ) PNA on CXR 2. SIRS (time: 840) T 101.6 HR 99 3. Organ Dysfunction (time: 949) 2.4 Interventions: Blood cultures collected Lactic acid collected Broad Spectrum antibiotics Lactic acid #1: 2.4 Lactic acid #2: 2.0 While patient was she does severe sepsis with suspected pneumonia is unclear if this is bacterial versus viral at time of admission. Even patient's recent travel to [place] we'll treat this as a possible Coban 19 exposures/viral pneumonia therefore normal supple 1 guidelines were deviated from. Patient is admitted for respiratory and telemetry monitoring. Assessment & Plan Final Impression: (1) Severe sepsis Depart Disposition: ADMITTED Last Vital Signs Date Time Temp Pulse Resp B/P (MAP) Pulse Ox O2 Delivery O2 Flow Rate FiO2 07/30/19 09:35 95 19 148/96 93 07/30/19 08:41 101.6 Home Meds Reported Medications Potassium Citrate (POTASSIUM CITRATE) 10 Meq Tablet.er, 99 MG PO DAILY, #30 CAP 01/09/18 Magnesium Oxide (MAGNESIUM OXIDE) 400 Mg Tablet, 400 MG PO DAILY, TAB 01/09/18 Rivaroxaban (XARELTO) 10 Mg Tablet, 20 MG PO DAILY 04/22/17 Tizanidine Hcl (TIZANIDINE HCL) 4 Mg Capsule, PRN 04/21/17 Gabapentin (GABAPENTIN) 300 Mg Capsule, 300 MG PO BID, #60 CAP 04/21/17 Tamsulosin Hcl (TAMSULOSIN HCL) 0.4 Mg Cap.er.24h 04/21/17 Celecoxib (CELEBREX) 200 Mg Capsule, 200 MG PO DAILY 07/06/15 Lisinopril/Hydrochlorothiazide (Lisinopril-Hctz 11/21.5 Tb) 1 Each Tablet, 1 EACH PO QD 05/22/11 Allopurinol (Zyloprim) 300 Mg Tablet, 100 MG PO QD 05/22/11 Simvastatin (Zocor) 20 Mg Tablet, 20 MG PO HS 05/22/11 Medications in the ED Acetaminophen 650 mg ONCE ONCE PO Last administered on 07/30/19at 09:22; Admin Dose 650 MG; Start 07/30/19 at 09:00; Stop 07/30/19 at 09:01; Status DC Cefepime HCl 50 ml @ 100 mls/hr Q24H STAT IV Last administered on 07/30/19at 09:21; Admin Dose 100 MLS/HR; Start 07/30/19 at 08:54; Stop 07/30/19 at 09:23; Status DC THOMAS JONES, Jul 30, 2019 10:10
--- NOTE | 2019-07-30 10:49 | NUR ---
PATIENTS - JESÚS WEAVER CALLED TO LEAVE HER NUMBER [phone]
[2019-07-30 10:56] LABS: CLARITY,URINE CLEAR (CLEAR); COLOR,URINE YELLOW (YELLOW)
[2019-07-30 10:57] LABS: BILIRUBIN,URINE NEGATIVE (NEGATIVE); KETONES,URINE NEGATIVE (NEGATIVE); LEUKOCYTE ESTERASE ,URINE NEGATIVE (NEGATIVE); NITRITE,URINE NEGATIVE (NEGATIVE); PROTEIN,URINE DIPSTICK NEGATIVE (NEGATIVE); URINE UROBILINOGEN 0.2 mg/dL (0.2 - 1)
[2019-07-30 11:07] LABS: WBC,URINE (MAN) 0-5 /HPF (0-5)
[2019-07-30 11:08] LABS: BACTERIA,URINE RARE /HPF; EPITHELIAL CELLS,URINE RARE /LPF; RBC,URINE 0-5 /HPF (0-5)
--- NOTE | 2019-07-30 14:49 | NUR ---
consult [id number]
[2019-07-30] MEDS: CEFTRIAXONE SOD 1 GM/NS 50 ML 50 ML IV SCH (15:10)
[2019-07-30] MEDS: AZITHROMYCIN 500MG/NS 250 ML 250 ML IV SCH (15:42)
[2019-07-30] MEDS ORDERED: GUAIFENESIN 600MG/DEXTROMETHORPHAN 30MG TABSR PO PRN (17:30)
[2019-07-30] MEDS: GABAPENTIN 300 MG CAP PO SCH (17:30)
[2019-07-30] MEDS ORDERED: HYDRALAZINE HCL 20 MG/ML VIAL IV PRN (17:30)
[2019-07-30] MEDS ORDERED: ONDANSETRON HCL INJ 2MG/ML 2ML 2 MG/ML VIAL IV PRN (17:30)
--- NOTE | 2019-07-30 19:25 | Consultation ---
DATE OF CONSULTATION: Pulmonary Critical Care Consultation CHIEF COMPLAINT: Confusion and infiltrate on chest x-ray. HISTORY OF PRESENT ILLNESS: The patient is an 83-year-old man. The patient reports a history of a prior nephrectomy many years ago. He also has a history of a ureteral stone and kidney problems. He drove to [place] recently and according to the family, he was more confused, although he denies it. He does not complain of dyspnea or cough. He is not complaining of chest pain. In the emergency department, he was found to have an infiltrate on his chest x-ray, consistent with pneumonia. PAST MEDICAL HISTORY: 1. Nephrolithiasis. 2. Hypertension. PAST SURGICAL HISTORY: 1. Status post nephrectomy. 2. Status post hemigastrectomy and vagotomy with a Rodriguez-en-Y reconstruction. 3. History of exploratory laparotomy. FAMILY HISTORY: Family history is not obtainable. SOCIAL HISTORY: The patient does not smoke or drink. REVIEW OF SYSTEMS: There is no history of fever. He has some confusion according to the family, although he denies it. He is not complaining of headache. He has no neck pain. He is not complaining of chest pain. He does note some mild cough. There is no dyspnea. He has no abdominal pain. There is no nausea or vomiting. PHYSICAL EXAMINATION: VITAL SIGNS: The blood pressure is 105/83, saturation is 97% on room air, and the pulse is 61. His T-max is 101.6, although he is afebrile now. HEENT: Shows no facial swelling or erythema. CARDIAC: Reveals regular rate and rhythm with normal S1 and S2. LUNGS: Auscultation of lungs reveals rhonchorous breath sounds bilaterally. There is no wheezing. ABDOMEN: Soft and nontender. There is no rebound or guarding. EXTREMITIES: Shows no leg edema. LABORATORY DATA: White blood cell count is 14.7 and the hemoglobin is 14.8. Platelet count is 172. The BUN to creatinine ratio is 17 to 1.04 and the potassium is 3.7. Albumin is 3.1. LFTs are within normal limits. RADIOGRAPHIC DATA: Chest x-ray shows patchy opacities in the right and left lung base. IMPRESSION: 1. Community-acquired pneumonia with sepsis, present on admission. 2. History of nephrolithiasis. 3. Hypertension. 4. History of prior nephrectomy. PLAN: 1. The patient will be started on antibiotics. 2. Isolation and COVID-19 testing. 3. Oxygen as needed. 4. Judicious use of IV fluids. 5. Echocardiogram. MD PAUL Skaggs/FRANKLYN /[id number]
--- NOTE | 2019-07-30 22:00 | Consultation ---
DATE OF CONSULTATION: REASON FOR CONSULTATION: Pneumonia. HISTORY OF PRESENT ILLNESS: This patient, who is an 83-year-old. He tells me he is doing well. He went to bed, he started to have fever and chills. He was brought by his family because he was earlier confused this morning, but right now he is alert and oriented. He said he is feeling fair. REVIEW OF SYSTEMS: At the present time, he said he is feeling well. HEENT: Negative. PULMONARY: Negative. CARDIAC: Negative. : Negative. GI: Negative. PAST MEDICAL HISTORY: Nephrectomy on the right, exploratory laparotomy, stent on left kidney. PAST SURGICAL HISTORY: As above. SOCIAL HISTORY: There is no smoking, drug abuse, or alcohol abuse. FAMILY HISTORY: Otherwise noncontributory. LABORATORY DATA: White count was 14.7 and hemoglobin 14.8. Sodium 141, potassium 3.7, and creatinine 1.04. His COVID-19 is still pending. MEDICATIONS: He is currently on Flomax, Neurontin, and allopurinol. PHYSICAL EXAMINATION: GENERAL: He is currently alert and oriented. Does not seem to be in acute distress. VITAL SIGNS: Stable, currently afebrile. HEENT: Not icteric. NECK: Supple. CHEST: Clear. HEART: S1 and S2. No S3, S4, or murmur. ABDOMEN: Soft. IMPRESSION: Pneumonia, present on admission, community-acquired. PLAN: To put him on Rocephin 2 g daily and azithromycin 500 mg daily. Obtain blood cultures, sputum cultures. Recheck CBC. Recheck chem panel. Await COVID-19. Oxygen as needed. Further recommendations to follow. We will reassess again shortly. MD ROJAS Arriaza/FRANKLYN /[id number]
--- NOTE | 2019-07-30 22:35 | NUR ---
Patient received via wheelchair from ER. AAO x 3. Patient had no complaints of pain. Respirations even and non-labored. Admission history obtained. Initial physical assessment performed. Safety measures implemented. Patient oriented to room, call light and plan of care. Patient instructed to call for assistance when needed. Call light within reach.
[2019-07-30 22:57] VITALS: BP_SYST 147; BP_SYST 149; BP_DIAS 73; BP_DIAS 77
[2019-07-30] MEDS: SIMVASTATIN 20 MG TAB PO SCH (23:29)
[2019-07-31] VITALS (7 sets, daily range): BP systolic 125–170; BP diastolic 75–92
[2019-07-31 05:32] LABS: BASOPHILS % 0.5 % (0.0-1.0); EOSINOPHILS # (AUTO) 0.4 (0.0-0.4); EOSINOPHILS % 4.1 % (0.0-6.0); HEMATOCRIT 42.4 % (38.2-49.6); HEMOGLOBIN 13.6 g/dL (14.0-18.0); LYMPHOCYTES # (AUTO) 1.7 (1.0-3.2); MEAN CORPUSCULAR HEMOGLOBIN 30.2 pg (28-32); MEAN CORPUSCULAR HGB CONC 32.1 g/dL (31-35); MONOCYTES # (AUTO) 0.6 (0.2-0.8); MONOCYTES % 7.2 % (4.4-11.3); NEUTROPHILS # (AUTO) 5.9 (2.1-6.9); PLATELET COUNT 151 x10e3/uL (140-360); RED BLOOD COUNT 4.51 x10e6/uL (4.3-5.7); RED CELL DISTRIBUTION WIDTH 13.2 % (11.7-14.4)
[2019-07-31 05:53] LABS: ALANINE AMINOTRANSFERASE 15 IU/L (0-55); ALBUMIN 3.2 g/dL (3.5-5.0); ALBUMIN/GLOBULIN RATIO 1.2 (0.8-2.0); ALKALINE PHOSPHATASE 75 IU/L (40-150); ANION GAP 8.4 mmol/L (8-16); BLOOD UREA NITROGEN 15 mg/dL (7-26); BUN/CREATININE RATIO 14 (6-25); CALCIUM 8.8 mg/dL (8.4-10.2); CARBON DIOXIDE 29 mmol/L (22-29); CHLORIDE 105 mmol/L (98-107); CREATININE, SERUM 1.05 mg/dL (0.72-1.25); EST GLOMERULAR FILTRATION RATE > 60 ML/MIN (60-); GLUCOSE 100 mg/dL (74-118); POTASSIUM 4.4 mmol/L (3.5-5.1); SODIUM 138 mmol/L (136-145)
[2019-07-31] MEDS: ALLOPURINOL 100 MG TAB PO SCH (06:15)
[2019-07-31] MEDS: TAMSULOSIN HCL 0.4 MG CAP PO SCH (06:16)
--- NOTE | 2019-07-31 06:39 | NUR ---
Dr. Ashvin Roman aware of consult for patient.
--- NOTE | 2019-07-31 06:40 | NUR ---
Dr. Johanna Olivares paged regarding "Routine Consult". Reason: TESSA LAM. Spoke to Angle. Awaiting call back.
--- NOTE | 2019-07-31 06:42 | NUR ---
Walking rounds done. Patient resting comfortably. Bed-side shift report given to oncoming nurse regarding patient's status.
[2019-07-31] MEDS: RIVAROXABAN 20 MG TABLET PO SCH (08:41)
[2019-07-31] MEDS: GABAPENTIN 300 MG CAP PO SCH ×2 (08:41→16:45)
[2019-07-31] MEDS: FAMOTIDINE 20 MG/2 ML VIAL IV SCH ×2 (08:41→16:42)
[2019-07-31] MEDS ORDERED: HYDROCHLOROTHIAZIDE 25 MG TAB PO SCH (10:00)
[2019-07-31] MEDS: HYDROCHLOROTHIAZIDE 25 MG TAB PO SCH (11:30)
[2019-07-31] MEDS: LISINOPRIL 10 MG TAB PO SCH (11:30)
[2019-07-31] MEDS: CEFTRIAXONE SOD 1 GM/NS 50 ML 50 ML IV SCH (15:00)
[2019-07-31] MEDS ORDERED: AMLODIPINE BESYLATE 5 MG TAB PO PRN (15:45)
[2019-07-31] MEDS: AZITHROMYCIN 500MG/NS 250 ML 250 ML IV SCH (16:42)
[2019-07-31] MEDS: ACETAMINOPHEN 325 MG TAB PO PRN (19:19)
--- NOTE | 2019-07-31 19:39 | Consultation ---
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 MD ROSAURA Cintron/FRANKLYN /[id number]
[2019-07-31] MEDS: SIMVASTATIN 20 MG TAB PO SCH (20:26)
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
[2019-07-31] MEDS ORDERED: ALBUTEROL/IPRATROPIUM 3 ML NEB NEB ONE (22:45)
--- NOTE | 2019-07-31 22:45 | NUR ---
PT C/O SOB, OS SAT 99% RA, NOTIFIED DR LUQUE. QUETA MARTINEZ GAVE ORDER FOR NEB TREATMENT ONCE. CALLED RT AND REQUEST BREATHING TREATMENT FOR PT
[2019-07-31] MEDS ORDERED: LORATADINE/PSEUDOEPHEDRINE 24 HR SR TAB PO ONE (23:30)
[2019-08-01] VITALS: BP 146/83
[2019-08-01 00:18] VITALS: BP 125/82
[2019-08-01] MEDS: ACETAMINOPHEN 325 MG TAB PO PRN ×2 (01:30→08:22)
[2019-08-01 04:00] VITALS: BP 150/91
[2019-08-01 06:10] LABS: BASOPHILS % 0.3 % (0.0-1.0); EOSINOPHILS % 0.5 % (0.0-6.0); HEMATOCRIT 45.2 % (38.2-49.6); HEMOGLOBIN 15.7 g/dL (14.0-18.0); LYMPHOCYTES # (AUTO) 1.3 (1.0-3.2); LYMPHOCYTES % 14.4 % (18.0-39.1); MEAN CORPUSCULAR HEMOGLOBIN 32.1 pg (28-32); MEAN CORPUSCULAR HGB CONC 34.7 g/dL (31-35); MEAN CORPUSCULAR VOLUME 92.4 fL (81-99); MONOCYTES # (AUTO) 0.6 (0.2-0.8); MONOCYTES % 6.5 % (4.4-11.3); NEUTROPHILS # (AUTO) 6.8 (2.1-6.9); PLATELET COUNT 150 x10e3/uL (140-360); RED BLOOD COUNT 4.89 x10e6/uL (4.3-5.7)
[2019-08-01] MEDS: ALLOPURINOL 100 MG TAB PO SCH (06:18)
[2019-08-01] MEDS: TAMSULOSIN HCL 0.4 MG CAP PO SCH (06:18)
[2019-08-01 06:41] LABS: ALANINE AMINOTRANSFERASE 16 IU/L (0-55); ALBUMIN 3.6 g/dL (3.5-5.0); ALBUMIN/GLOBULIN RATIO 1.2 (0.8-2.0); ALKALINE PHOSPHATASE 81 IU/L (40-150); ANION GAP 12.9 mmol/L (8-16); BLOOD UREA NITROGEN 16 mg/dL (7-26); BUN/CREATININE RATIO 15 (6-25); CALCIUM 9.7 mg/dL (8.4-10.2); CARBON DIOXIDE 26 mmol/L (22-29); CHLORIDE 103 mmol/L (98-107); CREATININE, SERUM 1.08 mg/dL (0.72-1.25); EST GLOMERULAR FILTRATION RATE > 60 ML/MIN (60-); GLUCOSE 107 mg/dL (74-118); POTASSIUM 3.9 mmol/L (3.5-5.1); SODIUM 138 mmol/L (136-145)
[2019-08-01 07:43] VITALS: BP 181/100
--- NOTE | 2019-08-01 08:03 | Diagnostic Imaging Report ---
EXAMINATION: CHEST 2 VIEWS INDICATION: Pneumonia, shortness of breath ^F/U ^[id number] ^[id number] COMPARISON: Chest x-ray 07/30/2019 FINDINGS: PA and lateral views TUBES and LINES: None. LUNGS: The lungs are mildly hyperinflated. Diffuse bronchial wall thickening. There is no evidence of pneumonia or pulmonary edema. PLEURA: No pleural effusion or pneumothorax. HEART AND MEDIASTINUM: The cardiomediastinal silhouette is unremarkable.. BONES AND SOFT TISSUES: No focal osseous lesions. Soft tissues are unremarkable. UPPER ABDOMEN: Unremarkable. IMPRESSION: Mild pulmonary hyperinflation suggestive of small airways disease. Diffuse bronchial wall thickening may be secondary to acute or chronic bronchitis. No confluent infiltrates. Signed by: Dr. Toro Castro MD on 08/01/2019 8:00 AM
[2019-08-01] MEDS: HYDROCHLOROTHIAZIDE 25 MG TAB PO SCH (08:16)
[2019-08-01] MEDS: FAMOTIDINE 20 MG/2 ML VIAL IV SCH (08:16)
[2019-08-01] MEDS: GABAPENTIN 300 MG CAP PO SCH (08:16)
[2019-08-01] MEDS: LISINOPRIL 10 MG TAB PO SCH (08:16)
[2019-08-01] MEDS: RIVAROXABAN 20 MG TABLET PO SCH (08:18)
[2019-08-01 08:25] VITALS: BP 180/100
[2019-08-01] MEDS ORDERED: CEFDINIR300 MG PO (09:00)
[2019-08-01] MEDS ORDERED: ZITHROMAX500 MG PO (09:00)
[2019-08-01] MEDS ORDERED: MUCINEX DM ER1 EACH PO (09:00)
[2019-08-01] MEDS ORDERED: LISINOPRIL10 MG PO (09:08)
[2019-08-01] MEDS ORDERED: AMLODIPINE BESYL5 MG PO (09:08)
[2019-08-01] MEDS ORDERED: HYDROCHLOROTHIA25 MG PO (09:08)
--- NOTE | 2019-08-01 09:22 | NUR ---
IMM letter delivered and explained to pt. He verbalized understanding. States he's ready to go home. Signed copy placed in chart. Copy to pt.
--- NOTE | 2019-08-01 10:30 | NUR ---
Spoke to Dr. Nicholas who said he can arrange outpatient MBS for pt thru his office.
--- NOTE | 2019-08-01 11:55 | NUR ---
PT DISCHARGED HOME WITH HIS DAUGHTER AND WAS ASKED TO FOLLOW UP WITH HIS PCP IN 1 WEEK, AND TO FOLLOW UP WITH DR. VEGA IN 7 DAYS. NO C/O PAIN AT THIS TIME NO DISTRESS NOTED, PT IV SITE REMOVED NO SWELLING NO REDNESS TO SITE.
--- NOTE | 2019-08-01 15:28 | Progress Note ---
DATE: SUBJECTIVE: Mr. Osborne is lying in bed comfortable. PHYSICAL EXAMINATION: GENERAL: He is currently alert, oriented. VITAL SIGNS: Stable, afebrile. HEENT: He is not icteric. NECK: Supple. CHEST: Clear. COR: S1, S2. No murmurs. ABDOMEN: Soft. IMPRESSION: Community-acquired pneumonia present on admission, clinically seems to be better. Family history of valvular heart disease. Blood cultures are negative. White count is normalizing. Continue with the Rocephin and azithromycin as ordered. Continue supportive care. We will follow. MD ROJAS Arriaza/FRANKLYN /[id number]
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
== END 2019-08-01 17:25 | disposition home or self-care (01) | DRG 871 ==
LOC: ER 07:51 → ERHOLD 12:17 → MED/SURG2 22:04
PROVIDERS: ADMIT Internal Medicine; ATTEND Internal Medicine
DX: A41.9 Sepsis, unspecified organism (principal); J18.1 Lobar pneumonia, unspecified organism; Z11.59 Encounter for screening for other viral diseases; R65.20 Severe sepsis without septic shock; M10.9 Gout, unspecified; E66.9 Obesity, unspecified; Z68.30 Body mass index [BMI] 30.0-30.9, adult; E78.5 Hyperlipidemia, unspecified; N28.1 Cyst of kidney, acquired; K21.9 Gastro-esophageal reflux disease without esophagitis; I10 Essential (primary) hypertension; Z86.718 Personal history of other venous thrombosis and embolism; D29.1 Benign neoplasm of prostate; Z90.5 Acquired absence of kidney
CPT/HCPCS: 36415; 71045; 71046; 80053; 81001; 82550; 82553; 83605; 84484; 85025; 87040; 87086; 87635; 93306; 94640; 99284; J0360; J0456; J0692; J0696

== ENCOUNTER 2019-09-18 15:10 | Inpatient (IN) | payer MEDICARE, OTHER ==
[~2019-09-18] VITALS: Ht 177.8 cm; Wt 92.7 kg
[~2019-09-18 15:10] MED LIST changes: +AMLODIPINE BESYL5 MG PO; +CEFDINIR300 MG PO; +HYDROCHLOROTHIA25 MG PO; +LISINOPRIL10 MG PO; +MUCINEX DM ER1 EACH PO; +ZITHROMAX500 MG PO
--- OUTSIDE RECORDS SUMMARY | 2019-09-18 15:44 | XMS REPORT | Continuity of Care Document ---
Author Author [facility] t Organization [facility] Address [address] [place] [address] [address] [place] [address] Phone Unavailable Care Team Providers Care Pediatric Allergist Name Role Phone BRUNO LUQUE Attphys Unavailable HAMPELSUZIE Attphys Unavailable NEO VEGA Attphymari Unavailable BRUNO LUQUE Admphymari Unavailable Problems This patient has no known problems. Allergies, Adverse Reactions, Alerts This patient has no known allergies or adverse reactions. Medications This patient has no known medications. Procedures This patient has no known procedures. Results Test Description Test Time Test Comments Results Result Comments Source CHEST 2 VIEWS 2019-08-01 07:58:00 [place] [address] Patient Name: ESPINOZA WEAVER MR #: [id number] : 1935 Age/Sex: 83/M Req #: [id number] Adm Physician: BRUNO LUQUE MD Ordered by: NEO VEGA MD Report #: [id number] Location: [facility] Room/Bed: [facility] Procedure: [id number] DX/CHEST 2 VIEWS Exam Date: 08/01/19 Exam Time: 0640 REPORT STATUS: Signed EXAMINATION: CHEST 2 VIEWS INDICATION: Pneumonia, shortness of breath F/U [id number] COMPARISON: Chest x-ray 07/30/2019 FINDINGS: PA and lateral views TUBES and LINES: None. LUNGS: The lungs are mildly hyperinflated. Diffuse bronchial wall thickening. There is no evidence of pneumonia or pulmonary edema. PLEURA: No pleural effusion or pneumothorax. HEART AND MEDIASTINUM: The cardiomediastinal silhouette is unremarkable.. BONES AND SOFT TISSUES: No focal osseous lesions. Soft tissues are unremarkable. UPPER ABDOMEN: Unremarkable. IMPRESSION: Mild pulmonary hyperinflation suggestive of small airways disease. Diffuse bronchial wall thickening may be secondary to acute or chronic bronchitis. No confluent infiltrates. Signed by: Dr. Asad Miller MD on 08/01/2019 8:00 AM Dictated By: ASAD MILLER MD 08 Transcribed By: JERI on 08/01/19 0800 COPY TO: NEO VEGA MD CHEST SINGLE (PORTABLE) 2019-07-30 08:54:00 [place] [address] Patient Name: ESPINOZA WEAVER MR #: [id number] : 1935 Age/Sex: 83/M Req #: [id number] Adm Physician: Ordered by: THOMAS JONES DO Report #: [id number] Location: ER Room/Bed: Procedure: [id number] DX/CHEST SINGLE (PORTABLE) Exam Date: 07/30/19 Exam Time: 0815 REPORT STATUS: Signed EXAMINATION: CHEST SINGLE (PORTABLE) INDICATION: Fever COMPARISON: Chest CT 11/25/2018 FINDINGS: LINES/TUBES:EKG leads overlie the chest. LUNGS:The lungs are moderately inflated. Patchy opacities throughout the right lung and at the left lung base. PLEURA:No pleural effusion or pneumothorax. MEDIASTINUM:The cardiomediastinal silhouette appears normal in size and shape. BONES/SOFT TISSUES:No acute osseous injury. ABDOMEN:No free air under the diaphragm. IMPRESSION: Patchy opacities in the right lung and left lung base are concerning for pneumonia in the proper clinical setting. Signed by: Lori Samano MD on 07/30/2019 8:55 AM Dictated By: LORI SAMANO MD 4 Transcribed By: JERI on 07/30/19854 COPY TO: THOMAS JONES DO ABDOMEN-1VIEW (KUB) 2019-04-06 14:32:00 [place] [address] Patient Name: ESPINOZA WEAVER MR #: [id number] : 1935 Age/Sex: 83/M Req #: [id number] Adm Physician: Ordered by: SUZIE CANCINO MD Report #: [id number] Location: Room/Bed: Procedure: [id number] DX/ABDOMEN-1VIEW (KUB) Exam Date: 04/06/19 Exam Time: 1400 REPORT STATUS: Signed Exam: KUB Clinical history: Acute renal failure Comparison: July 01, 2018 Findings: There is no evidence of radiopaque stones along the course of bilateral renal collecting system. Mildly prominent air-filled small bowel loops are noted in the left upper quadrant which may represent ileus. There is no gross evidence of pneumoperitoneum. 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 Impression: 1. No radiographic evidence of nephrolithiasis. 2. Mildly prominent small bowel loops in the left upper quadrant which may represent ileus. Signed by: Dr. Amos Liang MD on 04/06/2019 2:34 PM Dictated By: LORRI LIANG MD 33 Transcribed By: JERI on 04/06/191433 COPY TO: SUZIE CANCINO MD RENAL RETROPERITONEAL COMP 2019-04-06 14:06:00 [place] [address] Patient Name: ESPINOZA WEAVER MR #: [id number] : 1935 Age/Sex: 83/M Req #: [id number] Adm Physician: Ordered by: SUZIE CANCINO MD Report #: [id number] Location: Room/Bed: Procedure: [id number] US/US RENAL RETROPERITONEAL COMP Exam Date: 04/06/19 Exam Time: 1349 REPORT STATUS: Signed Renal ultrasound Clinical History: Renal failure Discussion: Sonographic evaluation of the kidneys is performed. The right kidney has normal size and cortical echogenicity. The right kidney has been removed. The left kidney measures 13.5 cm in length. There is no hydronephrosis or shadowing renal calculus. In the inferior pole left kidney, a 1.8 x 1.6 x 1.7 cm anechoic lesion with thin internal septation is noted. No perinephric fluid collection is seen. Survey images of the bladder demonstrate no abnormality. Impression: 1. Status post right nephrectomy. 2. Left renal cysts measuring up to 1.8 cm in diameter within internal septation as described. Signed by: Dr. Amos Liang MD on 04/06/2019 2:08 PM Dictated By: LORRI LIANG MD 07 Transcribed By: JERI on 04/06/191407 COPY TO: SUZIE CANCINO MD CT CHEST WO 2018-11-25 14:03:00 [place] [address] Patient Name: ESPINOZA WEAVER MR #: [id number] : 1935 Age/Sex: 82/M Req #: [id number] Adm Physician: Ordered by: NEO VEGA MD Report #: [id number] Location: CT Room/Bed: Procedure: [id number] CT/CT CHEST WO Exam Date: 11/25/18 Exam Time: 1320 REPORT STATUS: Signed EXAM: CT Chest WITHOUT intravenous contrast 11/25/2018 1:08 PM INDICATION: Shortness of breath COMPARISON: Chest CT of 04/07/2018 TECHNIQUE: Chest was scanned utilizing a multidetector helical scanner from the lung apex through the level of the adrenal glands without administration of IV contrast. Coronal and sagittal reformations were obtained. Routine protocol was performed. IV CONTRAST: None RADIATION DOSE: Total DLP: 454.3 mGy*cm. Dose modulation, iterative reconstruction, and/or weight based adjustment of the mA/kV was utilized to reduce the radiation dose to as low as reasonably achievable. COMPLICATIONS: None FINDINGS: LINES/ TUBES: None. LUNGS AND AIRWAYS: The central airways are patent. Mild right greater than left bronchial wall thickening. Scattered right lower lobe predominant centrilobular and tree-in-bud nodules. This is improved compared to the prior chest CT of 04/07/2018. Bilateral lower lobe dependent subsegmental atelectasis right greater than left. Left lower lobe 5 mm pulmonary nodule (series 3 image 65) is unchanged dating back to at least 12/24/2016. No new suspicious pulmonary nodules. Right lower lobe calcified granuloma. PLEURA: No pleural effusion or pneumothorax. HEART AND MEDIASTINUM: The thyroid gland is normal. No mediastinal, hilar or axillary lymphadenopathy. The heart is not enlarged. No pericardial effusion. Diffuse atherosclerotic calcifications involve the coronary arteries with scattered athetotic calcifications of the aorta and great vessels. The thoracic aorta is ectatic, measuring up to 4.1 cm.. UPPER ABDOMEN: Limited noncontrast imag es of the upper abdomen demonstrate no focal abnormality of the partially visualized liver, gallbladder, spleen, adrenals, or pancreas. The kidneys are not visualized. BONES: No acute osseous injury. No suspicious lytic or blastic lesions. SOFT TISSUES: Unremarkable. IMPRESSION: Interval improvement in right lung lower lobe predominant centrilobular and tree-in-bud nodules, likely reflecting a resolving infectious/inflammatory process. Left lower lobe 5 mm pulmonary nodule is unchanged dating back to at least 12/24/2016 and is thus likely benign. No further imaging follow-up is needed. Atherosclerotic calcifications including of the coronary arteries. Signed by: Lori Samano MD on 11/25/2018 2:53 PM Dictated By: LORI SAMANO MD 52 Transcribed By: JERI on 11/25/181452 COPY TO: NEO VEGA MD ABDOMEN-1VIEW (KUB) 2018-07-01 15:50:00 [place] [address] Patient Name: ESPINOZA WEAVER MR #: [id number] : 1935 Age/Sex: 82/M Req #: [id number] Adm Physician: Ordered by: SUZIE CANCINO MD Report #: [id number] Location: [facility] Room/Bed: Procedure: [id number] DX/ABDOMEN-1VIEW (KUB) Exam Date: 07/01/18 Exam Time: 1520 REPORT STATUS: Signed Exam: Abdominal film Clinical History: Absent right kidney, kidney stones Comparison: None. DISCUSSION: No suspicious calcifications are identified projecting over the left renal shadow or expected ureteral course. Bowel gas pattern shows no dilated, air-filled loops of bowel. No mass effect or organomegaly. Multilevel degenerative disc changes of the lumbar spine. IMPRESSION: No plain film evidence of urolithiasis. Signed by: Dr. Neo Degroot M.D. on 07/01/2018 3:52 PM Dictated By: NEO DEGROOT MD 51 Transcribed By: JERI on 07/01/181551 COPY TO: SUZIE CANCINO MD CT CHEST WO 2018-04-07 15:01:00 [place] [address] Patient Name: ESPINOZA WEAVER MR #: [id number] : 1935 Age/Sex: 82/M Req #: [id number] Adm Physician: Ordered by: NEO VEGA MD Report #: [id number] Location: CT Room/Bed: Procedure: [id number] CT/CT CHEST WO Exam Date: Exam Time: REPORT STATUS: Signed EXAMINATION: CT scan of the chest without contrast. TECHNIQUE: Spiral CT images of the chest were performed from the lung apices to the level of the adrenal glands. No intravenous contrast was administered per referring physician request. Coronal and sagittal reformatted images were obtained. COMPARISON: 12/24/2016 CLINICAL HISTORY:Dyspnea on exertion DISCUSSION: ABSENCE OF INTRAVENOUS CONTRAST DECREASES SENSITIVITY FOR DETECTION OF FOCAL LESIONS AND VASCULAR PATHOLOGY. LINES/TUBES: None. LUNGS AND AIRWAYS: As before, fairly extensive tree-in-bud nodular opacities involving the right upper, right middle, and right lower lobes, with relative sparing of the apical segment of the right upper lobe and superior segment of the right lower lobe. Less extensive findings are noted in the perihilar regions of the left upper and lower lobes. Scattered groundglass nodules in the left upper lobe for example series 3 image 42. Trachea, mainstem bronchi, lobar, and segmental bronchi are patent. Calcified granuloma right lower lobe. PLEURA: No pneumothorax or pleural effusions. HEART AND MEDIASTINUM: Visualized portions of the thyroid gland are normal. No ectasia or aneurysmal dilatation of the thoracic aorta. Pulmonary outflow tract is of normal caliber. Atherosclerotic coronary artery calcifications. No pericardial effusion. LYMPH NODES: No axillary, hilar, or mediastinal lymphadenopathy. ABDOMEN: Visualized portions of the liver, gallbladder, spleen, pancreas, and adrenals are unremarkable. Partially visualized exophytic lesion projecting from the upper pole of the left kidney with average internal attenuation 40 Hounsfield units. Postsurgical changes of the distal stomach. BONES AND SOFT TISSUES: No focal soft tissue abnormalities. No osseous destructive lesions. Stable mild anterior compression deformity of the lower thoracic spine. IMPRESSION: Slight progression of predominant tree-in-bud opacities involving the right upper, middle, and lower lobes relat melanie to the examination 12/24/2016. Findings compatible with inflammatory bronchiolitis or atypical mycobacterial infection. Bronchoscopy may be of benefit for further evaluation given chronicity and/or recurrence of findings. Atherosclerotic vascular disease. Partially visualized exophytic lesion projecting from the left kidney, which may reflect a hyperdense cyst or solid mass. CT or MRI of the abdomen renal mass protocol or renal ultrasound may be considered for further evaluation. Signed by: Dr. Neo Degroot M.D. on 04/07/2018 3:11 PM Dictated By: NEO DEGROOT MD 1511 Transcribed By: JERI on 04/07/18 1511 COPY TO: NEO VEGA MD CHEST 2 VIEWS 2018-01-09 13:41:00 [place] [address] Patient Name: ESPINOZA WEAVER MR #: [id number] : 1935 Age/Sex: 82/M Req #: [id number] Adm Physician: Ordered by: SUZIE CANCINO MD Report #: [id number] Location: OR Room/Bed: Procedure: [id number] DX/CHEST 2 VIEWS Exam Date: 01/09/18 Exam Time: 1237 REPORT STATUS: Signed EXAMINATION: PA and lateral views of the chest. COMPARISON: CT chest without contrast 12/24/2016 CLINICAL HISTORY: Preoperative study urological procedure DISCUSSION: Lungs are well-inflated. No focal consolidation, pleural effusion, or pneumothorax. Stable cardiomediastinal contour with tortuosity and atherosclerotic calcification of the thoracic aorta. No acute osseous abnormality. IMPRESSION: No acute cardiopulmonary abnormalities. Signed by: Dr. Neo Degroot M.D. on 01/09/2018 1:43 PM Dictated By: NEO DEGROOT MD 1343 Transcribed By: JERI on 01/09/18 1343 COPY TO: SUZIE CANCINO MD CHEST 2 VIEWS [place] [address] Patient Name: ESPINOZA WEAVER MR #: [id number] : 1935 Age/Sex: 81/M Req #: [id number] Adm Physician: Ordered by: MARY ELLEN SAMANIEGO MD Report #: [id number] Location: ENDO Room/Bed: Procedure: [id number] DX/CHEST 2 VIEWS Exam Date: 04/21/17 Exam Time: 1255 REPORT STATUS: Signed PROCEDURE: X-RAY CHEST, TWO VIEWS COMPARISON: Chest x-ray 09/01/15, CT chest 04/07/17 INDICATIONS: PRE-ADMISSION CHEST X-RAY FOR LUNG INFECTION FINDINGS: LUNGS: Diffusely hyperinflated. A calcified granuloma in the posterior costophrenic angle is stable. No soft tissue mass or infiltrate by x-ray. Vascular markings are normal. PLEURA: No effusions or pneumothorax. HEART T MEDIASTINUM: The heart is within normal size- limits. There are prominent pericardial fat pads. Mild aortic ectasia is stable. BONES T SOFT TISSUES: Diffusely demineralized. No focal osseous lesions. CONCLUSION: Diffuse hyperinflation suggestive of COPD. No acute cardiopulmonary process. Dictated by: Asad Miller M.D. on 04/21/2017 at 18:20 Electronically approved by: Asad Miller M.D. on 04/21/2017 at 18:20 Dictated By: ASAD MILLER MD 19 Transcribed By: DAKOTA on 04/21/171819 COPY TO: MARY ELLEN SAMANIEGO MD CT CHEST [place] [address] Patient Name: ESPINOZA WEAVER MR #: [id number] : 1935 Age/Sex: 81/M Req #: [id number] Adm Physician: Ordered by: NEO VEGA MD Report #: [id number] Location: CT Room/Bed: Procedure: [id number] CT/CT CHEST WO Exam Date: 04/07/17 Exam Time: [...] by: Gary Kaufman M.D. on 04/07/2017 at 15:09 Electronically approved by: Gary Kaufman M.D. on 04/07/2017 at 15:09 Dictated By: GARY KAUFMAN MD 08 Transcribed By: DAKOTA on 04/07/171508 COPY TO: NEO VEGA MD CT CHEST WO [place] [address] Patient Name: ESPINOZA WEAVER MR #: [id number] : 1935 Age/Sex: 81/M Req #: [id number] Adm Physician: Ordered by: NEO VEGA MD Report #: [id number] Location: CT Room/Bed: Procedure: [id number] CT/CT CHEST WO Exam Date: 12/24/16 Exam Time: [...] findings. IMPRESSION: 1. Predominantly tree-in-bud opacities right up per lobe, middle lobe, and lower lobe, slightly progressed. Findings most consistent with an acute infectious/inflammatory process such as bronchiolitis. Atypical processes such as mycobacterium cannot be excluded. Signed by: Dr. Neelima Moss MD on 12/25/2016 1:14 PM Dictated By: NEELIMA MOSS MD 1314 Transcribed By: JERI on 12/25/16 1314 COPY TO: NEO VEGA MD
[2019-09-18] MEDS ORDERED: KETOROLAC TROMETHAMINE 30 MG/ML VIAL IV ONE (17:03)
[2019-09-18] MEDS ORDERED: SODIUM CHLORIDE 0.9% 1000ML 1,000 ML IV STA (17:03)
[2019-09-18] MEDS ORDERED: MORPHINE SULFATE 2 MG/ML SYR 1ML IV ONE (17:03)
[2019-09-18] MEDS ORDERED: ONDANSETRON HCL INJ 2MG/ML 2ML 2 MG/ML VIAL IV ONE (17:03)
[2019-09-18 18:17] LABS: BASOPHILS % 0.3 % (0.0-1.0); EOSINOPHILS # (AUTO) 0.1 (0.0-0.4); EOSINOPHILS % 1.3 % (0.0-6.0); HEMOGLOBIN 13.4 g/dL (14.0-18.0); LYMPHOCYTES # (AUTO) 1.1 (1.0-3.2); LYMPHOCYTES % 12.2 % (18.0-39.1); MEAN CORPUSCULAR HEMOGLOBIN 29.8 pg (28-32); MEAN CORPUSCULAR HGB CONC 31.9 g/dL (31-35); MEAN CORPUSCULAR VOLUME 93.5 fL (81-99); MONOCYTES # (AUTO) 1.4 (0.2-0.8); MONOCYTES % 15.4 % (4.4-11.3); NEUTROPHILS # (AUTO) 6.2 (2.1-6.9); NEUTROPHILS % 70.3 % (38.7-80.0); PLATELET COUNT 235 x10e3/uL (140-360); RED BLOOD COUNT 4.49 x10e6/uL (4.3-5.7); RED CELL DISTRIBUTION WIDTH 13.2 % (11.7-14.4)
--- NOTE | 2019-09-18 18:19 | Diagnostic Imaging Report ---
EXAMINATION: CHEST SINGLE (PORTABLE) INDICATION: HURTING ALL OVER, MILD COUGH COMPARISON: Chest x-ray 08/01/2019 FINDINGS: PA and lateral views TUBES and LINES: None. LUNGS: Mild perihilar, peribronchial thickening and perihilar streaky densities may reflect viral infection versus reactive airway disease. Thoracic aorta is tortuous and unfolded. Mild patchy density in the left lung base suggestive of subsegmental atelectasis. There is no evidence of pneumonia or pulmonary edema. PLEURA: No pleural effusion or pneumothorax. HEART AND MEDIASTINUM: Cardiac size is mildly enlarged.. BONES AND SOFT TISSUES: No focal osseous lesions. Soft tissues are unremarkable. UPPER ABDOMEN: Unremarkable. IMPRESSION: Mild viral infection versus reactive airway disease. No focal consolidation. Signed by: Dr. Kaylyn Mcdermott M.D. on 09/18/2019 6:16 PM
[2019-09-18 18:31] LABS: PARTIAL THROMBOPLASTIN TIME 27.7 seconds (23.8-35.5)
[2019-09-18 18:37] LABS: INR 0.94
[2019-09-18 18:38] LABS: ALBUMIN 3.4 g/dL (3.5-5.0); ANION GAP 12.7 mmol/L (8-16); CALCIUM 8.9 mg/dL (8.4-10.2); CREATININE, SERUM 1.69 mg/dL (0.72-1.25); POTASSIUM 4.7 mmol/L (3.5-5.1)
[2019-09-18 18:45] LABS: CREATINE KINASE MB 15.5 ng/mL (0-5.0)
[2019-09-18 19:52] LABS: CLARITY,URINE SL CLOUDY (CLEAR); COLOR,URINE YELLOW (YELLOW); LEUKOCYTE ESTERASE ,URINE NEGATIVE (NEGATIVE); NITRITE,URINE NEGATIVE (NEGATIVE)
[2019-09-18 19:53] LABS: BILIRUBIN,URINE NEGATIVE (NEGATIVE); KETONES,URINE TRACE (NEGATIVE); PROTEIN,URINE DIPSTICK 1+ (NEGATIVE); URINE UROBILINOGEN 0.2 mg/dL (0.2 - 1)
[2019-09-18 19:54] LABS: BACTERIA,URINE FEW /HPF; EPITHELIAL CELLS,URINE FEW /LPF; MUCUS,URINE FEW (RARE); WBC,URINE (MAN) 0-5 /HPF (0-5)
[2019-09-18] MEDS: SODIUM CHLORIDE 0.9% 1000ML 1,000 ML IV SCH (20:00)
--- NOTE | 2019-09-18 20:44 | Emergency Department Note ---
History of Present Illnes History of Present Illness Chief Complaint: General Medicine Complaints History of Present Illness This is a 83 year old male .PRESENTS WITH C/O PAIN ALL OVER SINCE HE WOKE UP THIS AM, STATES HURTS EVERYWHERE, ANY MOVEMENT CAUSES PAIN. Arrival Mode: [place] Additional Treatment RECEPTIONIST SCHEDULER: N/A Onset (how long ago): hour(s) (12) Location: ALL OVER Quality: PAIN Radiation: Reports non-radiation Severity: moderate Onset quality: sudden Duration (how long): hour(s) (12) Timing of current episode: constant Progression: unchanged Chronicity: new Context: Denies recent illness, Denies recent surgery, Denies recent travel Relieving factors: none Exacerbating factors: movement Associated symptoms: Reports denies other symptoms Treatments prior to arrival: none Past Medical/Family History Physician Review I have reviewed the patient's past medical and family history. Any updates have been documented here. Past Medical History Recent Fever: No Clinical Suspicion of Infectio: No New/Unexplained Change in Ment: No Past Medical History: Hypertension, Hyperlipedemia, DVT/PE Other Medical History: PATIENT HAD RIGHT KIDNEY REMOVED Gout Past Surgical History: Back Surgery Other Surgery: EXPLORATORY LAP RIGHT NEPHRECTOMY JULY 06, 2015 STENT PLACED IN LEFT KIDNEY Umbilical hernia repair Stomach sx(half of stomach removed) Social History Smoking Cessation: Never Smoker Counseling Performed: No Alcohol Use: None Any Illegal Drug Use: No Physically hurt or threatened: No Other Last Tetanus: OOD Any Pre-Existing Lines (PICC,: No Review of Systems Review of Systems Constitutional: Reports no symptoms EENTM: Reports no symptoms Cardiovascular: Reports no symptoms Respiratory: Reports no symptoms Gastrointestinal: Reports no symptoms Genitourinary: Reports no symptoms Musculoskeletal: Reports as per HPI Integumentary: Reports no symptoms Neurological: Reports no symptoms Psychological: Reports no symptoms Endocrine: Reports no symptoms Hematological/Lymphatic: Reports no symptoms Physical Exam Related Data Allergies: Coded Allergies: No Known Drug Allergies (Verified Allergy, Mild, 08/06/15) Triage Vital Signs Vital Signs Date Time Temp Pulse Resp B/P (MAP) Pulse Ox O2 Delivery O2 Flow Rate FiO2 09/18/19 15:35 97.9 86 13 134/72 100 Room Air Vital signs reviewed: Yes Physical Exam CONSTITUTIONAL Constitutional: Present well-developed, Present well-nourished HENT HENT: Present normocephalic, Present atraumatic, Present oropharynx clear/moist, Present nose normal HENT L/R: Present left ext ear normal, Present right ext ear normal EYES Eyes: Reports PERRL, Reports conjunctivae normal NECK Neck: Present ROM normal PULMONARY Pulmonary: Present effort normal, Present breath sounds normal CARDIOVASCULAR Cardiovascular: Present regular rhythm, Present heart sounds normal, Present capillary refill normal, Present normal rate GASTROINTESTINAL Abdominal: Present soft, Present nontender, Present bowel sounds normal GENITOURINARY Genitourinary: Present exam deferred SKIN Skin: Present warm, Present dry MUSCULOSKELETAL Musculoskeletal: Present ROM normal, Present other (HAS PAIN WITH ANY MOVEMENT) NEUROLOGICAL Neurological: Present alert, Present oriented x 3, Present no gross motor or se nsory deficits PSYCHOLOGICAL Psychological: Present mood/affect normal, Present judgement normal Results Laboratory Result Diagram: 09/18/19180409/18/191804 Laboratory Laboratory Tests Test 09/18/19 18:22 09/18/19 18:05 Urine Color Yellow (YELLOW) Urine Clarity Sl cloudy (CLEAR) Urine pH 5.5 (5 - 7) Urine Specific Shorter 1.025 (1.010-1.025) Urine Protein 1+ (NEGATIVE) Urine Glucose (UA) Negative (NEGATIVE) Urine Ketones Trace (NEGATIVE) Urine Blood Moderate (NEGATIVE) Urine Nitrite Negative (NEGATIVE) Urine Bilirubin Negative (NEGATIVE) Urine Urobilinogen 0.2 mg/dL (0.2 - 1) Urine Leukocyte Esterase Negative (NEGATIVE) Urine RBC 11-20 /HPF (0-5) Urine WBC 0-5 /HPF (0-5) Urine Epithelial Cells Few /LPF (NONE) Urine Bacteria Few /HPF (NONE) Urine Mucus Few (RARE) Urine Sperm Present (NONE) White Blood Count 8.75 x10e3/uL (4.8-10.8) Red Blood Count 4.49 x10e6/uL (4.3-5.7) Hemoglobin 13.4 g/dL (14.0-18.0) Hematocrit 42.0 % (38.2-49.6) Mean Corpuscular Volume 93.5 fL (81-99) Mean Corpuscular Hemoglobin 29.8 pg (28-32) Mean Corpuscular Hemoglobin Concent 31.9 g/dL (31-35) Red Cell Distribution Width 13.2 % (11.7-14.4) Platelet Count 235 x10e3/uL (140-360) Neutrophils (%) (Auto) 70.3 % (38.7-80.0) Lymphocytes (%) (Auto) 12.2 % (18.0-39.1) Monocytes (%) (Auto) 15.4 % (4.4-11.3) Eosinophils (%) (Auto) 1.3 % (0.0-6.0) Basophils (%) (Auto) 0.3 % (0.0-1.0) Neutrophils # (Auto) 6.2 (2.1-6.9) Lymphocytes # (Auto) 1.1 (1.0-3.2) Monocytes # (Auto) 1.4 (0.2-0.8) Eosinophils # (Auto) 0.1 (0.0-0.4) Basophils # (Auto) 0.0 (0.0-0.1) Absolute Immature Granulocyte (auto 0.04 x10e3/uL (0-0.1) Prothrombin Time 13.0 seconds (11.9-14.5) Prothromb Time International Ratio 0.94 Activated Partial Thromboplast Time 27.7 seconds (23.8-35.5) Sodium Level 138 mmol/L (136-145) Potassium Level 4.7 mmol/L (3.5-5.1) Chloride Level 102 mmol/L (98-107) Carbon Dioxide Level 28 mmol/L (22-29) Anion Gap 12.7 mmol/L (8-16) Blood Urea Nitrogen 44 mg/dL (7-26) Creatinine 1.69 mg/dL (0.72-1.25) Estimat Glomerular Filtration Rate 39 ML/MIN (60-) BUN/Creatinine Ratio 26 (6-25) Glucose Level 114 mg/dL (74-118) Calcium Level 8.9 mg/dL (8.4-10.2) Total Bilirubin 0.8 mg/dL (0.2-1.2) Aspartate Amino Transf (AST/SGOT) 48 IU/L (5-34) Alanine Aminotransferase (ALT/SGPT) 24 IU/L (0-55) Alkaline Phosphatase 71 IU/L (40-150) Creatine Kinase 1830 IU/L (30-200) Creatine Kinase MB 15.50 ng/mL (0-5.0) Troponin I 0.061 ng/mL (0-0.300) B-Type Natriuretic Peptide 93.0 pg/mL (0-100) Total Protein 6.7 g/dL (6.5-8.1) Albumin 3.4 g/dL (3.5-5.0) Globulin 3.3 g/dL (2.3-3.5) Albumin/Globulin Ratio 1.0 (0.8-2.0) Lab results reviewed: Yes Imaging Imaging results reviewed: Yes Impressions Procedure: [id number] DX/CHEST SINGLE (PORTABLE) Exam Date: 09/18/19 Exam Time: 1744 REPORT STATUS: Signed EXAMINATION: CHEST SINGLE (PORTABLE) INDICATION: HURTING ALL OVER, MILD COUGH COMPARISON: Chest x-ray 08/01/2019 FINDINGS: PA and lateral views TUBES and LINES: None. LUNGS: Mild perihilar, peribronchial thickening and perihilar streaky densities may reflect viral infection versus reactive airway disease. Thoracic aorta is tortuous and unfolded. Mild patchy density in the left lung base suggestive of subsegmental atelectasis. There is no evidence of pneumonia or pulmonary edema. PLEURA: No pleural effusion or pneumothorax. HEART AND MEDIASTINUM: Cardiac size is mildly enlarged.. BONES AND SOFT TISSUES: No focal osseous lesions. Soft tissues are unremarkable. UPPER ABDOMEN: Unremarkable. IMPRESSION: Mild viral infection versus reactive airway disease. No focal consolidation. Signed by: Dr. Kaylyn Grant M.D. 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: Interpreted by ED physician Date: Sep 18, 2019 Time: 18:20 Rhythm: sinus rhythm Rate: normal BPM: 77 QRS axis: normal Conduction: intraventricular conduction delay ST segments normal: Yes Other findings: no other findings Clinical Impression: non-specific ECG Assessment & Plan Medical Decision Making MDM PT WITH PAIN ALL OVER CBC, CMP, CARDIAC ENZYMES, EKG, ORDERED TO EVAL FOR ELECTROLYTE ABNORMALITY, MYOCARDIAL INFARCTION, RHABDOMYOLYSIS I SPOKE WITH DR LUQUE ADMIT INPATIENT Assessment & Plan Final Impression: (1) Rhabdomyolysis (2) Pain (3) Acute renal insufficiency Depart Disposition: ADMITTED Last Vital Signs Date Time Temp Pulse Resp B/P (MAP) Pulse Ox O2 Delivery O2 Flow Rate FiO2 09/18/19 15:38 84 13 145/72 97 Room Air 09/18/19 15:35 97.9 Home Meds Active Scripts Amlodipine Besylate (AMLODIPINE BESYLATE) 5 Mg Tablet, 5 MG PO DAILY, #30 TAB Prov:ROSA CHAPA M BRAND DIRECTOR 08/01/19 Hydrochlorothiazide (HYDROCHLOROTHIAZIDE) 25 Mg Tablet, 25 MG PO DAILY, #30 TAB Prov:WINSOME CHAPAIN M BRAND DIRECTOR 08/01/19 Lisinopril (LISINOPRIL) 10 Mg Tablet, 10 MG PO DAILY, #30 TAB Prov:ROSA CHAPA M BRAND DIRECTOR 08/01/19 Guaifenesin/Dextromethorphan (MUCINEX DM ER 600-30 MG TABLET) 1 Each Tab.er.12h, 1 EACH PO Q12H PRN for congestion, #20 TAB Prov:ROSA CHAPA M BRAND DIRECTOR 08/01/19 Cefdinir (OMNICEF) 300 Mg Capsule, 300 MG PO BID for 5 Days, CAP Prov:ROSA CHAPA M BRAND DIRECTOR 08/01/19 Azithromycin (ZITHROMAX) 500 Mg Tablet, 500 MG PO DAILY for 3 Days Prov:ROSA CHAPA BRAND DIRECTOR 08/01/19 Reported Medications Potassium Citrate (POTASSIUM CITRATE) 10 Meq Tablet.er, 99 MG PO DAILY, #30 CAP 01/09/18 Rivaroxaban (XARELTO) 10 Mg Tablet, 20 MG PO DAILY 04/22/17 Tizanidine Hcl (TIZANIDINE HCL) 4 Mg Capsule, PRN 04/21/17 Gabapentin (GABAPENTIN) 300 Mg Capsule, 300 MG PO BID, #60 CAP 04/21/17 Tamsulosin Hcl (TAMSULOSIN HCL) 0.4 Mg Cap.er.24h 04/21/17 Celecoxib (CELEBREX) 200 Mg Capsule, 200 MG PO DAILY 07/06/15 Allopurinol (Zyloprim) 300 Mg Tablet, 100 MG PO QD 05/22/11 Simvastatin (Zocor) 20 Mg Tablet, 20 MG PO HS 05/22/11 Medications in the ED Morphine Sulfate 4 mg ONCE ONCE IV Last administered on 09/18/19at 18:31; Admin Dose 4 MG; Start 09/18/19 at 17:03; Stop 09/18/19 at 17:04 Ondansetron HCl 4 mg ONCE ONCE IV Last administered on 09/18/19at 18:32; Admin Dose 4 MG; Start 09/18/19 at 17:03; Stop 09/18/19 at 17:04 Ketorolac Tromethamine 15 mg ONCE ONCE IV Last administered on 09/18/19at 18:32; Admin Dose 15 MG; Start 09/18/19 at 17:03; Stop 09/18/19 at 17:04 Sodium Chloride 1,000 ml @ 0 mls/hr Q0M STAT IV Last administered on 09/18/19at 18:32; Admin Dose 999 MLS/HR; Start 09/18/19 at 17:03; Stop 09/18/19 at 17:04 GEOFFREY BATES MD Sep 18, 2019 20:44
[2019-09-18] MEDS ORDERED: MORPHINE SULFATE 2 MG/ML SYR 1ML IV PRN (20:45)
[2019-09-18] MEDS ORDERED: HYDRALAZINE HCL 20 MG/ML VIAL IV PRN (21:15)
[2019-09-18] MEDS ORDERED: TEMAZEPAM 7.5 MG CAP PO PRN (21:15)
[2019-09-18] MEDS ORDERED: POLYETHYLENE GLYCOL 3350 17 GM PACK PO PRN (21:15)
[2019-09-18] MEDS ORDERED: ACETAMINOPHEN 325 MG TAB PO PRN (21:15)
[2019-09-18 21:30] VITALS: BP 144/86
[2019-09-19] VITALS (8 sets, daily range): BP systolic 142–170; BP diastolic 70–93
[2019-09-19 04:00] LABS: BASOPHILS % 0.4 % (0.0-1.0); EOSINOPHILS # (AUTO) 0.1 (0.0-0.4); EOSINOPHILS % 1.8 % (0.0-6.0); HEMATOCRIT 38.3 % (38.2-49.6); HEMOGLOBIN 12.4 g/dL (14.0-18.0); LYMPHOCYTES # (AUTO) 1.3 (1.0-3.2); LYMPHOCYTES % 17.1 % (18.0-39.1); MEAN CORPUSCULAR HGB CONC 32.4 g/dL (31-35); MEAN CORPUSCULAR VOLUME 92.7 fL (81-99); MONOCYTES % 14.1 % (4.4-11.3); NEUTROPHILS # (AUTO) 4.8 (2.1-6.9); NEUTROPHILS % 66.2 % (38.7-80.0); PLATELET COUNT 222 x10e3/uL (140-360); RED BLOOD COUNT 4.13 x10e6/uL (4.3-5.7); RED CELL DISTRIBUTION WIDTH 13.3 % (11.7-14.4)
[2019-09-19 04:15] LABS: ALBUMIN 2.9 g/dL (3.5-5.0); ALBUMIN/GLOBULIN RATIO 0.9 (0.8-2.0); ANION GAP 8.5 mmol/L (8-16); CALCIUM 8.5 mg/dL (8.4-10.2); CHOL/HDL RATIO 3.3 (3.9-4.7); CREATININE, SERUM 1.41 mg/dL (0.72-1.25); MAGNESIUM 2.8 MG/DL (1.3-2.1); PHOSPHORUS 2.6 MG/DL (2.3-4.7); POTASSIUM 4.5 mmol/L (3.5-5.1)
[2019-09-19 04:23] LABS: CREATINE KINASE MB 9.3 ng/mL (0-5.0)
[2019-09-19 04:35] LABS: THYROID STIMULATING HORMONE 0.106 uIU/mL (0.350-4.940)
[2019-09-19] MEDS: SODIUM CHLORIDE 0.9% 1000ML 1,000 ML IV SCH (04:45)
--- NOTE | 2019-09-19 07:22 | NUR ---
ASSUMED CARE. RESTING IN BED. ACYANOTIC. NO DISTRESS NOTED. CALL LIGHT IN REACH. SIDE RAILS UP X2. BED LOW AND LOCKED.
[2019-09-19] MEDS: DOCUSATE SODIUM 100 MG CAP PO SCH ×2 (08:59→17:00)
[2019-09-19] MEDS: FAMOTIDINE 20 MG/2 ML VIAL IV SCH ×2 (08:59→18:00)
[2019-09-19] MEDS: SODIUM BICARBONATE 8.4% 100 ML in DEXTROSE 5% 1,000 ML IV SCH ×3 (12:03→22:26)
[2019-09-19 12:04] LABS: CREATINE KINASE MB 6.5 ng/mL (0-5.0)
--- NOTE | 2019-09-19 19:35 | NUR ---
BEDSIDE SHIFT REPORT RECEIVED FROM DAY RN. PT IS ALERT AND ORIENTED X3. RESPIRATIONS ARE EVEN AND UNLABORED. PT DENIES PAIN. VOIDING PER URINAL. PT REPORTS HAVING DIARRHEA TODAY. RN ASKED PT TO SHOW BM TO NURSE IN BATHROOM SO COULD DOCUMENT HOW STOOL LOOKED FOR DR. JAIN IN LEFT UPPER ARM NA HO3 +D5W AT 125ML/HR. SITE HEALTHY.CALL LIGHT WITHIN REACH. BED LOCKED IN LOW POSITION.
[2019-09-19] MEDS: ONDANSETRON HCL INJ 2MG/ML 2ML 2 MG/ML VIAL IV PRN (21:00)
[2019-09-20] VITALS (8 sets, daily range): BP systolic 124–165; BP diastolic 64–95
[2019-09-20 06:20] LABS: BASOPHILS # (AUTO) 0.1 (0.0-0.1); BASOPHILS % 0.7 % (0.0-1.0); EOSINOPHILS # (AUTO) 0.1 (0.0-0.4); EOSINOPHILS % 1.2 % (0.0-6.0); HEMOGLOBIN 12.3 g/dL (14.0-18.0); LYMPHOCYTES # (AUTO) 1.4 (1.0-3.2); LYMPHOCYTES % 19.2 % (18.0-39.1); MEAN CORPUSCULAR HEMOGLOBIN 29.3 pg (28-32); MEAN CORPUSCULAR HGB CONC 32.4 g/dL (31-35); MEAN CORPUSCULAR VOLUME 90.5 fL (81-99); MONOCYTES # (AUTO) 0.8 (0.2-0.8); MONOCYTES % 11.4 % (4.4-11.3); NEUTROPHILS # (AUTO) 4.9 (2.1-6.9); NEUTROPHILS % 67.1 % (38.7-80.0); PLATELET COUNT 261 x10e3/uL (140-360); RED CELL DISTRIBUTION WIDTH 12.9 % (11.7-14.4)
--- NOTE | 2019-09-20 07:04 | NUR ---
BEDSIDE SHIFT REPORT RECEIVED FROM PM NURSE. PT IN STABLE CONDITION. WILL CONTINUE TO MONITOR.
[2019-09-20 07:10] LABS: CREATINE KINASE MB 4.4 ng/mL (0-5.0)
[2019-09-20 07:27] LABS: ALANINE AMINOTRANSFERASE 20 IU/L (0-55); ALKALINE PHOSPHATASE 58 IU/L (40-150); ANION GAP 10.5 mmol/L (8-16); BUN/CREATININE RATIO 20 (6-25); CALCIUM 8.6 mg/dL (8.4-10.2); CARBON DIOXIDE 28 mmol/L (22-29); CHLORIDE 101 mmol/L (98-107); CREATININE, SERUM 1.02 mg/dL (0.72-1.25); EST GLOMERULAR FILTRATION RATE > 60 ML/MIN (60-); GLUCOSE 118 mg/dL (74-118); PHOSPHORUS 2.1 MG/DL (2.3-4.7); SODIUM 136 mmol/L (136-145)
[2019-09-20 07:29] LABS: BLOOD UREA NITROGEN 20 mg/dL (7-26); POTASSIUM 3.5 mmol/L (3.5-5.1)
[2019-09-20] MEDS: SODIUM BICARBONATE 8.4% 100 ML in DEXTROSE 5% 1,000 ML IV SCH ×2 (08:14→20:12)
[2019-09-20] MEDS: CYANOCOBALAMIN INJ 1,000 MCG/ML VIAL IM SCH (08:54)
[2019-09-20] MEDS: FAMOTIDINE 20 MG/2 ML VIAL IV SCH ×2 (08:54→16:52)
[2019-09-20] MEDS: ONDANSETRON HCL INJ 2MG/ML 2ML 2 MG/ML VIAL IV PRN ×2 (08:54→16:52)
[2019-09-20] MEDS: FOLIC ACID MDV 1 MG in SODIUM CHLORIDE 0.9% 50ML 50 ML IV SCH (08:54)
[2019-09-20] MEDS: THIAMINE HCL INJ 100 MG/ML 2ML VIAL IV SCH (08:55)
[2019-09-20] MEDS: DOCUSATE SODIUM 100 MG CAP PO SCH ×3 (08:55→16:52)
[2019-09-20] MEDS: TAMSULOSIN HCL 0.4 MG CAP PO SCH (08:55)
[2019-09-20] MEDS ORDERED: POTASSIUM PHOSPHATE 20 MM in SODIUM CHLORIDE 0.9% 250ML 250 ML IV SCH (09:30)
--- NOTE | 2019-09-20 10:32 | History and Physical ---
PRIMARY CARE PHYSICIAN: Scooter Archuleta MD. CONSULTING PHYSICIAN: Dr. Morel with Nephrology. OUTPATIENT UROLOGY: Dr. Luc Tony. OUTPATIENT PULMONOLOGY: Dr. Nicholas. OUTPATIENT NEPHROLOGY: None. The patient was seen by Dr. Morel during a previous hospitalization on 07/07/2015. CHIEF COMPLAINT: Systemic joint pain. HISTORY OF PRESENT ILLNESS: The patient is an 83-year-old male, who presented to the emergency department via EMS with complaints of" "pain all over " since he awoke on 09/17 with any movement causing him pain. He was last hospitalized here for bilateral pneumonia with sepsis and his COVID test was negative at that time in July of this year. 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 In July of 2019 his ejection fraction on echo was 60%-65%. PAST SURGICAL HISTORY: Exploratory laparotomy with bilateral truncal vagotomy and hemigastrectomy with Rodriguez-en-Y reconstruction. 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 On 07/05/2009, stent placed in the left kidney, on 08/04/2015 he underwent laser lithotripsy and a left indwelling ureteral stent placement, umbilical hernia repair. FAMILY HISTORY: Father had CT and alcoholism. Mother had cancer. Grandfather had CVA. 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 He is [place]-speaking with two children, generally functionally independent, has a distant history of minimal amount of smoking and chewed tobacco minimal amount, distant history of alcohol use in the [employer]. Denies history of illicit drug use. ALLERGIES: NO KNOWN ALLERGIES. HOME MEDICATIONS: The patient's nurse, CONSTANCE Zarco went over the patient's medication list with the patient and/or his and his home medications are as follows, 1. Lisinopril 10 mg daily. 2. Hydrochlorothiazide 25 mg every 3-4 days. 3. Simvastatin 20 mg at bedtime. 4. Allopurinol 100 mg daily. 5. Celebrex 200 mg daily. 6. Gabapentin 400 mg capsule b.i.d. 7. Potassium citrate 10 mEq tablet ER daily. 8. Magnesium 250 mg daily. 9. Clopidogrel 7 mg daily due to history of blood clot in the right leg. REVIEW OF SYSTEMS: A 14-point review of systems was completed other than the following, he had no complaints, he is hard of hearing, he had three diarrheal stools today and none yesterday. RN reported he had nausea/bowel movement was this morning. Joint pain that went from a 0-9 with any movement, headaches. OBJECTIVE: VITAL SIGNS: From today temperature 98.0, heart rate 63, blood pressure 142/80 earlier and now 166/91, respirations 20, oxygen saturation 96%. GENERAL: No acute distress, supine in bed. LUNGS: Clear to auscultation. Respiratory pattern even and unlabored, breathing on room air, no supplemental oxygen. HEENT: EOMI. NECK: Supple. No JVD or thyromegaly. CARDIOVASCULAR: Regular rate and rhythm. No murmur abdomen bowel sounds positive. Soft, nontender. No guarding. EXTREMITIES: No pitting edema. No clubbing, cyanosis, or marked swelling or sign of DVT. NEUROLOGIC: GCS 15. Nonfocal. Awake, alert, and oriented to person, place, time, and situation. LABORATORY DATA: WBCs today 7.31, hemoglobin 12.4, hematocrit 38.3, platelets 222,000. Yesterday PT 13, INR 0.94, PTT 27.7. On 09/17, sodium 138, potassium 4.7, chloride 102, CO2 28, anion gap 12.7, BUN 44, creatinine 1.69, estimated GFR 39, glucose 114, calcium 8.9, total bilirubin 0.8, AST 48, ALT 24, alkaline phosphatase 71. Creatine kinase 1830, CK-MB 15.5, troponin I 0.061. Total protein 6.7, albumin 3.4. B-type natriuretic peptide 93. Today sodium 137, potassium 4.5, chloride 105, CO2 28, anion gap 8.5, BUN 41, creatinine 1.41, estimated GFR 48, glucose 132. Hemoglobin A1c 5.4%. Calcium 8.5, phosphorus 2.6, magnesium 2.8, total bilirubin 0.7, AST 42, ALT 21, alkaline phosphatase 69, creatine kinase 1334, CK-MB 9.3, troponin I 0.037. Total protein 6.1, albumin 2.9. Triglycerides 111, cholesterol 114, LDL 57, HDL 35, TSH 0.106. Subsequent creatine kinase at 10:55, this morning 924, CK-MB 6.5, troponin I 0.04. Urinalysis showed slightly cloudy urine. Urine pH 5.5, specific gravity 1.025, protein 1+, trace amount of ketones, negative for nitrites, negative for leukocyte esterase, RBC 11-20, WBCs 0-5, few bacteria, few mucus, sperm present. Dawkins virus PCR collected 09/17 is pending, the sample was sent according to the lab staff to [facility] [place] and probable expected date of obtaining final results may be Friday. Preliminary urine culture shows a culture in progress. Re-intubation required. 09/17 chest x-ray per official radiologist's report shows mild viral infection versus reactive airway disease. No focal consolidation. A 12-lead EKG showed sinus rhythm with a heart rate of 77. ASSESSMENT/PLAN: 1. Rhabdomyolysis, D5W with two amps of sodium bicarbonate infusing at 125 mL an hour. Orders been entered for urinalysis to be collected 09/19 at 6:00 a.m. to follow up on urine pH. monitor creatine kinase levels. 2. Generalized joint pain. Pain control with Toradol, morphine sulfate and Tylenol all p.r.n. Monitor for improvement. 3. Acute renal failure versus chronic kidney disease stage 3 with solitary left kidney and BPH. BUN 41, creatinine 1.41, estimated GFR 48. Given the patient's history of solitary left kidney we will go ahead and consult Dr. Morel with Nephrology. Reassess renal labs in the morning. Given the patient's renal history. We will hold nephrotoxic agents and any NSAIDs. We will hold lisinopril/hydrochlorothiazide, allopurinol which the patient takes for gout, Celebrex, gabapentin, potassium citrate, and magnesium. Maintain nutritional support with renal diet. 4. Acute hypermagnesemia. Magnesium level 2.8. Reassess in the morning. Nephrology to follow. We will hold the patient's home dose of magnesium. 5. Controlled hypertension. Blood pressure 166/91. Given renal history we will hold lisinopril, hydrochlorothiazide. 6. Hyperlipidemia, resume home dose of simvastatin 20 mg at bedtime. 7. Rule out COVID-19. Per chest x-ray possible mild viral infection. Dawkins virus PCR lab has been collected and results are pending, expecting results by Friday. 8. Mild transaminitis, AST 42. Monitor. 9. History of DVT on Plavix. We will resume Plavix. 10. 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 Given this history, we will put the patient on vitamin B12, folate, and thiamine. 11. Prophylaxis, Pepcid, SCDs, and Plavix. H and P time spent 70 minutes. Billing code [id number]. Dictated by Bob Alves, QUETA MD RONNIE Cardona/FRANKLYN /[id number]
--- NOTE | 2019-09-20 13:59 | Consultation ---
DATE OF CONSULTATION: 09/20/2019 HISTORY OF PRESENT ILLNESS: This is an 83-year-old gentleman, who sees Dr. Aidan Archuleta and Dr. Luc Tony as an outpatient. Has multiple medical issues including history of solitary kidney, which was surgically removed because it was small and was giving rise to hypertension, according to the patient back when he was 26 years old, he has had left-sided pyelonephritis. He has had BPH. He has had TURP, has had prior pneumonia, gout, history of DVT right leg, which the patient does not remember. History of relatively normal ejection fraction. History of prior exploratory laparotomy, bilateral truncal vagotomy, and hemigastrectomy and Rodriguez-en-Y construction. Has been on lisinopril/hydrochlorothiazide, simvastatin, allopurinol, Celebrex, gabapentin, potassium citrate, magnesium, Plavix at home. The patient himself denies any history of kidney stone, but had a ureteral stent placements, he does not remember why. He is currently lying supine. He is just eager to go home by himself. He is completely asymptomatic. Denies shortness of breath, nausea, vomiting, or cramps. He suspected to have underlying rhabdomyolysis with acute kidney injury, which is why Renal has been consulted. ALLERGIES: NO APPARENT DRUG ALLERGIES. MEDICATIONS: He is on; folic acid, currently receiving bicarbonate drip. He is on B12 injection, Pepcid, simvastatin, Flomax, temazepam, thiamine. SOCIAL HISTORY: The patient does not smoke or drink. 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 FAMILY HISTORY: Significant for hypertension. PHYSICAL EXAMINATION: GENERAL: Awake, alert, oriented x3, lying supine, in no apparent distress. VITAL SIGNS: Blood pressure 124/95, pulse rate 98, and afebrile. HEAD AND NECK: Cornea clear. Oral mucosa moist. LUNGS: Relatively clear. HEART: S1 and S2 audible. ABDOMEN: Soft, nontender. EXTREMITIES: Lower extremity examination shows no edema. LABORATORY DATA: Show normal white count, hemoglobin 12.3, has a potassium 3.5, bicarbonate 28, creatinine 1.02. CK is down to 697. Total protein 6. IMPRESSION: 1. Rhabdomyolysis, etiology unclear, but resolving nicely. 2. Acute kidney injury, improving. 3. Solitary kidney, multiple comorbidities. I have asked him to stop taking lisinopril/HCTZ, and Celebrex at home. Avoid NSAIDs at all cost at this point in time, I will obtain kidney ultrasound, serum uric acid and follow upon receipt of these results. The patient may be potentially discharged home. If he is so eager to go home and then follow up in the office in 15 days, the patient to call make an appointment. Please see orders. MD VIRGINIA Macias/MODL /[id number]
[2019-09-20] MEDS ORDERED: PLAVIX75 MG PO (15:17)
[2019-09-20 17:51] LABS: CLARITY,URINE SL CLOUDY (CLEAR); COLOR,URINE YELLOW (YELLOW); LEUKOCYTE ESTERASE ,URINE NEGATIVE (NEGATIVE); NITRITE,URINE NEGATIVE (NEGATIVE); PROTEIN,URINE DIPSTICK 1+ (NEGATIVE)
[2019-09-20 17:52] LABS: BILIRUBIN,URINE NEGATIVE (NEGATIVE); KETONES,URINE NEGATIVE (NEGATIVE); URINE UROBILINOGEN 0.2 mg/dL (0.2 - 1)
[2019-09-20 18:02] LABS: AMORPHOUS SEDIMENT,URINE FEW (FEW); BACTERIA,URINE FEW /HPF; RBC,URINE 0-5 /HPF (0-5)
--- NOTE | 2019-09-20 19:03 | NUR ---
WALKING ROUNDS PERFORMED, RECEIVED PT SITTING ON SIDE OF BED, AAOX3, RR EVEN AND NON-LABORED, ON ROOM AIR. NO S/SX OF DISTRESS NOTED. LEFT PT SITTING ON SIDE OF BED, BED IN LOW LOCKED POSITION SIDE RAILS UPX2, CALL LIGHT AND PHONE WITHIN REACH.
--- NOTE | 2019-09-20 19:50 | NUR ---
SPOKE WITH RADIOLOGY CONCERNING RENAL US TO BE PERFORMED, RECEIVED IN REPORT THAT US TECH HAD BEEN CALLED OUT TO PERFORM TEST. WAS INFORMED THAT YES THE CHILDREN'S CHOIR DIRECTOR HAD BEEN CALLED AND THEY ARE ON THEIR WAY.
[2019-09-20] MEDS ORDERED: SIMVASTATIN 20 MG TAB PO SCH ×2 (21:00)
--- NOTE | 2019-09-20 22:46 | NUR ---
SPOKE WITH RADIOLOGY CONCERNING RENAL ULTRASOUND. RADIOLOGY TO CALL RIM TURNING FINISHER TECH AGAIN TO PERFORM.
--- NOTE | 2019-09-21 00:50 | NUR ---
CALLED TO PATIENT ROOM BY CALL LIGHT. PT REPORTS HE IS THROWING UP. PT FOUND SITTING ON SIDE OF BED WITH YELLOW EMESIS ON FLOOR. PT REPORT IT JUST CAME ON SUDDENLY. NOTIFIED JAYCE [place] ELECTRONIC DATA PROCESSING AUDITOR CONCERNING PT VOMITING. WAS INFORMED TO CONTINUE TO MONITOR AND IF VOMITING CONTINUES. CONSULT MD Toño LOPEZ.
[2019-09-21] MEDS: ONDANSETRON HCL INJ 2MG/ML 2ML 2 MG/ML VIAL IV PRN ×3 (01:00→09:37)
[2019-09-21] MEDS: SODIUM BICARBONATE 8.4% 100 ML in DEXTROSE 5% 1,000 ML IV SCH (01:01)
--- NOTE | 2019-09-21 01:56 | Diagnostic Imaging Report ---
EXAM: Renal Ultrasound INDICATION: ^preet COMPARISON: Renal ultrasound dated 04/06/2019 TECHNIQUE: Transverse and longitudinal images of the left kidney were obtained. FINDINGS: Right Kidney: Absent. Left Kidney: Size: 13.7 cm Echogenicity: Normal Parenchymal thickness: Normal Collecting system: No hydronephrosis Stones: None Cyst/Mass: 1.9 x 1.7 x 1.6 cm inferior pole cyst with thin septation. No internal vascular flow on color Doppler. As previously measured 1.8 x 1.7 x 1.6 cm Bladder: Not imaged. IMPRESSION: Stable mildly complex left renal cyst. Signed by: Dr. Jl Farrell MD on 09/21/2019 1:52 AM
--- NOTE | 2019-09-21 02:06 | Progress Note ---
DATE: 09/20/2019 SUBJECTIVE: The patient is lying supine in bed. He vomited twice today. Nurse states that this was likely more due to the nausea and the patient was given Zofran twice. Dr. Martinez saw and evaluated the patient today and I discussed the case with him. Dr. Martinez ordered a renal and liver ultrasound. In case the patient ended up staying, a CMP, uric acid, as well as a urinalysis to assess the pH of the urine. OBJECTIVE: VITAL SIGNS: Temperature 96.9, heart rate 76, blood pressure 147/73, respirations 22, oxygen saturation 100%. GENERAL: No acute distress. LUNGS: Clear to auscultation. Respiratory pattern even and nonlabored. No supplemental oxygen. HEENT: EOMI. NECK: Supple. No JVD or thyromegaly. CARDIOVASCULAR: Regular rate and rhythm without murmur. ABDOMEN: Bowel sounds positive. Soft, nontender. EXTREMITIES: No pitting edema. No clubbing, cyanosis, or marked swelling or signs of DVT. NEUROLOGICAL: GCS 15. Nonfocal. LABORATORY DATA: WBCs 7.36, hemoglobin 12.3, hematocrit 38, platelets 261. Sodium 136, potassium 3.5, chloride 101, CO2 of 28, anion gap 10.5, BUN 20, creatinine 1.02, estimated GFR greater than 60, glucose 118, uric acid 7.2, calcium 8.6, phosphorus 2.1, magnesium 2.0, total bilirubin 0.4, AST 30, ALT 20, alkaline phosphatase 58. Creatine kinase 697 (924, 1334), CK-MB 4.4. Troponin I 0.041. Total protein 6, albumin 3. Urinalysis collected at 1740 today showed slightly cloudy urine, urine specific gravity 1.02, urine protein 1+, trace amount of blood, negative for nitrite, and negative for leukocyte esterase. The urine pH was 8.5 (5.5). IMAGING DATA: No new imaging studies at this point. ASSESSMENT AND PLAN: 1. Rhabdomyolysis with unclear etiology. D5W with 2 amps of sodium bicarbonate infusing at 125 mL an hour continuous. Orders were written by Dr. Martinez for urinalysis to be collected in the morning to follow up on the urine pH. Continue to monitor creatinine levels, which are trending down nicely. 2. Acute kidney injury, solitary left kidney, benign prostatic hypertrophy. BUN 20, creatinine 1.02, estimated GFR greater than 60. Nephrology is following. Awaiting renal and liver ultrasound. Apparently, the mail technician was sick today and went home. The on-call mail technician was to complete this ultrasound today, but per the nurse, the mail technician has not showed up. Reassess renal labs in the morning. Hold any nephrotoxic agents and any NSAID. Continue to hold lisinopril/hydrochlorothiazide, allopurinol, Celebrex, gabapentin, potassium citrate, and magnesium. Continue nutritional support with renal diet. Serum uric acid is pending. Per Nephrology note, the patient can follow up with them in the office in 15 days. The patient can call the office to make an appointment. I have sent a text to Dr. Martinez regarding possible discharge; however, at this point, the renal ultrasound on the solitary kidney has not been completed nor the liver ultrasound. I would prefer get this done as well as receive the results of the serum uric acid level as well as the results on the pH from the urinalysis for 09/20 before he is discharged. 3. Acute hypomagnesemia. Magnesium level 2.0 (2.8), improved. Nephrology following. Continue to hold patient's home dose of magnesium. 4. Controlled hypertension. Blood pressure 147/73. Continue to hold lisinopril and hydrochlorothiazide. 5. Hyperlipidemia. Continue simvastatin. 6. Rule out coronavirus disease-19. Coronavirus PCR collected 09/17 remains pending. Expecting results by Friday, 09/21. 7. Mild transaminitis, AST 30 (42), improved. 8. History of deep vein thrombosis and on Plavix. Continue Plavix. 9. 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 Continue vitamin B12, folate, and thiamine. 10. Prophylaxis. Pepcid, SCDs, and Plavix. Time spent 35 minutes. Billing code [id number]. Dictated by Bob Alves NP MD RONNIE Cardona/ADAML /[id number]
--- NOTE | 2019-09-21 03:24 | NUR ---
SPOKE WITH MD JAYCE BIRMINGHAM, REQUESTING US OF LIVER AND KIDNEYS, ONLY KIDNEYS US WAS PERFORMED. SPOKE WITH RADIOLOGY TO CALL US TEAM OUT TO COMPLETE STAT US OF LIVER.
[2019-09-21 04:00] VITALS: BP 143/73
[2019-09-21 05:45] LABS: BASOPHILS # (AUTO) 0.1 (0.0-0.1); BASOPHILS % 0.7 % (0.0-1.0); EOSINOPHILS # (AUTO) 0.1 (0.0-0.4); EOSINOPHILS % 1.4 % (0.0-6.0); HEMATOCRIT 38.7 % (38.2-49.6); HEMOGLOBIN 12.8 g/dL (14.0-18.0); LYMPHOCYTES # (AUTO) 1.8 (1.0-3.2); LYMPHOCYTES % 19.1 % (18.0-39.1); MEAN CORPUSCULAR HEMOGLOBIN 29.7 pg (28-32); MEAN CORPUSCULAR HGB CONC 33.1 g/dL (31-35); MEAN CORPUSCULAR VOLUME 89.8 fL (81-99); MONOCYTES # (AUTO) 0.9 (0.2-0.8); MONOCYTES % 9.5 % (4.4-11.3); NEUTROPHILS # (AUTO) 6.6 (2.1-6.9); PLATELET COUNT 267 x10e3/uL (140-360); RED BLOOD COUNT 4.31 x10e6/uL (4.3-5.7); RED CELL DISTRIBUTION WIDTH 12.7 % (11.7-14.4)
[2019-09-21 06:12] LABS: ALANINE AMINOTRANSFERASE 18 IU/L (0-55); ALBUMIN 3.1 g/dL (3.5-5.0); ALKALINE PHOSPHATASE 53 IU/L (40-150); ANION GAP 12.7 mmol/L (8-16); BLOOD UREA NITROGEN 13 mg/dL (7-26); BUN/CREATININE RATIO 12 (6-25); CALCIUM 8.5 mg/dL (8.4-10.2); CARBON DIOXIDE 26 mmol/L (22-29); CHLORIDE 102 mmol/L (98-107); CREATININE, SERUM 1.08 mg/dL (0.72-1.25); EST GLOMERULAR FILTRATION RATE > 60 ML/MIN (60-); GLUCOSE 114 mg/dL (74-118); POTASSIUM 3.7 mmol/L (3.5-5.1); SODIUM 137 mmol/L (136-145)
[2019-09-21 06:29] LABS: BILIRUBIN,URINE NEGATIVE (NEGATIVE); CLARITY,URINE CLEAR (CLEAR); COLOR,URINE YELLOW (YELLOW); KETONES,URINE NEGATIVE (NEGATIVE); LEUKOCYTE ESTERASE ,URINE NEGATIVE (NEGATIVE); NITRITE,URINE NEGATIVE (NEGATIVE); PROTEIN,URINE DIPSTICK 1+ (NEGATIVE); URINE UROBILINOGEN 1 mg/dL (0.2 - 1)
--- NOTE | 2019-09-21 06:32 | Diagnostic Imaging Report ---
EXAM: Right Upper Quadrant Ultrasound INDICATION: ^ABDNORMAL LABS. COMPARISON: Renal ultrasound dated 09/21/2019 TECHNIQUE: Transverse and longitudinal images of the right upper abdomen were obtained. FINDINGS: Liver: Size: 16.9 cm in the right midclavicular line, enlarged Appearance: Increased echogenicity, smooth contour Mass: No focal masses Gallbladder: Stones/Sludge: None Wall: 0.5 cm Appearance: No pericholecystic fluid or hydrops. Contracted gallbladder. Sonographic Odom's Sign: Negative Bile Ducts: Intrahepatic Ducts: No dilatation Extrahepatic Ducts: Common bile duct measures 0.7 cm, borderline dilatation Pancreas: Not well-visualized. Right Kidney: Absent Vessels: Aorta: Not well visualized. Inferior Vena Cava: Visualized portions are normal Main Portal Vein: 1.6 cm, distended with hepatopetal flow. Free Fluid: No ascites or pleural effusion IMPRESSION: 1. Contracted gallbladder, demonstrating wall thickening. No cholelithiasis or pericholecystic fluid. 2. Enlarged steatotic liver. 3. Mildly distended common bile duct. If there is clinical concern for biliary obstruction, MRCP can be obtained for further evaluation. 4. Distended portal vein, which can be seen with portal hypertension. Signed by: Dr. Jl Farrell MD on 09/21/2019 6:29 AM
[2019-09-21 06:36] LABS: BACTERIA,URINE RARE /HPF; EPITHELIAL CELLS,URINE RARE /LPF; RBC,URINE 0-5 /HPF (0-5); WBC,URINE (MAN) 0-5 /HPF (0-5)
[2019-09-21 06:37] LABS: MAGNESIUM 1.6 MG/DL (1.3-2.1); PHOSPHORUS 2.3 MG/DL (2.3-4.7)
--- NOTE | 2019-09-21 07:07 | NUR ---
BEDSIDE SHIFT REPORT RECEIVED FROM PM NURSE. PT IN STABLE CONDITION.
[2019-09-21 07:34] VITALS: BP 142/88
[2019-09-21 07:49] VITALS: BP 142/88
[2019-09-21] MEDS: FOLIC ACID MDV 1 MG in SODIUM CHLORIDE 0.9% 50ML 50 ML IV SCH (09:00)
[2019-09-21] MEDS ORDERED: AMLODIPINE BESYL5 MG PO (09:02)
[2019-09-21] MEDS: TAMSULOSIN HCL 0.4 MG CAP PO SCH (09:31)
[2019-09-21] MEDS: DOCUSATE SODIUM 100 MG CAP PO SCH (09:31)
[2019-09-21] MEDS: THIAMINE HCL INJ 100 MG/ML 2ML VIAL IV SCH (09:32)
[2019-09-21] MEDS: FAMOTIDINE 20 MG/2 ML VIAL IV SCH (09:33)
[2019-09-21] MEDS: CYANOCOBALAMIN INJ 1,000 MCG/ML VIAL IM SCH (09:34)
--- NOTE | 2019-09-21 20:25 | Discharge Summary ---
ADMISSION DIAGNOSES: 1. Rhabdomyolysis. 2. Acute kidney injury on chronic kidney disease 3 with solitary left kidney. 3. Benign prostatic hypertrophy. 4. Hypermagnesemia. 5. Hyperlipidemia. 6. History of deep vein thrombosis. 7. History of leiomyoma of stomach with bilateral truncal vagotomy and hemigastrectomy with Rodriguez-en-Y reconstruction. DISCHARGE DIAGNOSES: 1. Rhabdomyolysis. 2. Acute kidney injury on chronic kidney disease 3 with solitary left kidney. 3. Benign prostatic hypertrophy. 4. Hypermagnesemia. 5. Hyperlipidemia. 6. History of deep vein thrombosis. 7. History of leiomyoma of stomach with bilateral truncal vagotomy and hemigastrectomy with Rodriguez-en-Y reconstruction. 8. Rule out coronavirus disease. 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 SURGICAL HISTORY: Exploratory lap with bilateral truncal vagotomy and hemigastrectomy with Rodriguez-en-Y construction, right nephrectomy, left kidney stent, umbilical hernia repair. FAMILY HISTORY: The patient's mom had cancer. The patient's grandfather had a stroke. The patient's dad had a heart attack. SOCIAL HISTORY: The patient has distant history of alcohol use. He denies illicit drug use. HOSPITAL COURSE: An 83-year-old male presents to the ER with complaints of pain all over. Since he woke up on 09/17, movement worsen the pain. On admission, the patient's CK was elevated at 1830. Chest x-ray showed mild viral infection versus reactive airway disease. No consolidation. Ultrasound of the liver showed contracted gallbladder demonstrating wall thickening. No cholelithiasis, enlarged steatotic liver, mildly distended common bile duct, distended portal vein. Renal ultrasound showed stable mildly complex left renal cyst. Urine culture was negative. The patient was started on IV fluids and the CK trended down. The patient kidney function was within normal limits. Dawkins virus was negative. Per Nephrology, the patient will stop taking lisinopril, hydrochlorothiazide, and Celebrex. At time of discharge, the patient was given a new prescription for Norvasc. His home medicines are not updated. He says he no longer takes any anticoagulation for distant history of DVT. He will follow up with primary care in 1 to 2 weeks. The patient understands discharge instructions and agrees to plan. He will continue to increase p.o. fluids at time of discharge. Dictated by Maame Mast NP MD COURTNEY Cardona/FRANKLYN /[id number]
== END 2019-09-21 10:16 | disposition home or self-care (01) | DRG 558 ==
LOC: ER 15:40 → ERHOLD 20:51 → MED/SURG 23:11
PROVIDERS: ADMIT Internal Medicine; ATTEND Internal Medicine
DX: M62.82 Rhabdomyolysis (principal); N17.9 Acute kidney failure, unspecified; N40.0 Benign prostatic hyperplasia without lower urinary tract symptoms; I12.9 Hypertensive chronic kidney disease with stage 1 through stage 4 chronic kidney disease, or unspecified chronic kidney disease; N18.3 Chronic kidney disease, stage 3 (moderate); Z86.718 Personal history of other venous thrombosis and embolism; E83.41 Hypermagnesemia; E78.5 Hyperlipidemia, unspecified; Z79.01 Long term (current) use of anticoagulants; N28.1 Cyst of kidney, acquired; Z11.59 Encounter for screening for other viral diseases; K76.0 Fatty (change of) liver, not elsewhere classified; Z90.5 Acquired absence of kidney; R74.0 Nonspecific elevation of levels of transaminase and lactic acid dehydrogenase [LDH]
CPT/HCPCS: 36415; 71045; 76705; 76770; 80053; 80061; 81001; 82550; 82553; 83036; 83735; 83880; 84100; 84443; 84484; 84550; 85025; 85610; 85730; 87086; 93005; 99284; J1885; J2270; J2405; J3411; J3420; J7030; J7050; J7070; U0002

== ENCOUNTER 2019-10-04 14:53 | Emergency (ER) | payer MEDICARE, OTHER ==
[~2019-10-04] VITALS: Ht 177.8 cm; Wt 92.5 kg
[~2019-10-04 14:53] MED LIST changes: +PLAVIX75 MG PO
[2019-10-04 15:30] LABS: CLARITY,URINE SL CLOUDY (CLEAR); COLOR,URINE YELLOW (YELLOW)
[2019-10-04 15:31] LABS: BILIRUBIN,URINE NEGATIVE (NEGATIVE); KETONES,URINE NEGATIVE (NEGATIVE); LEUKOCYTE ESTERASE ,URINE NEGATIVE (NEGATIVE); NITRITE,URINE NEGATIVE (NEGATIVE); PROTEIN,URINE DIPSTICK NEGATIVE (NEGATIVE); URINE UROBILINOGEN 0.2 mg/dL (0.2 - 1)
[2019-10-04 15:34] LABS: AMPHETAMINES SCREEN,URINE NEGATIVE (NEGATIVE); BENZODIAZEPINES SCREEN,URINE NEGATIVE (NEGATIVE); PHENCYCLIDINE SCREEN,URINE NEGATIVE (NEGATIVE)
[2019-10-04 15:43] LABS: AMORPHOUS SEDIMENT,URINE MODERATE (FEW); BACTERIA,URINE FEW /HPF; EPITHELIAL CELLS,URINE FEW /LPF; WBC,URINE (MAN) 0-5 /HPF (0-5)
--- NOTE | 2019-10-04 15:50 | Diagnostic Imaging Report ---
TECHNIQUE: Frontal view of the chest. INDICATION: ^AMS COMPARISON: 09/18/2019 DISCUSSION: Limited evaluation due to portable technique. Lines and hardware: Overlying EKG leads are noted Heart and mediastinum: Cardio medius on the silhouette is enlarged. Central vascular is prominent, similar to prior exam. Trachea projects midline. Thoracic aorta is tortuous. Lungs and pleura: No focal airspace consolidation. No pleural effusion. No pneumothorax. Soft tissues and bones: No acute abnormality. IMPRESSION: Negative for focal consolidation. Stable cardiomegaly. Signed by: Bryson Pierre MD on 10/04/2019 3:47 PM
--- NOTE | 2019-10-04 15:51 | Emergency Department Note ---
History of Present Illnes History of Present Illness Chief Complaint: Neurological History of Present Illness This is a 83 year old male who does not understand why he is here. Patient states that he was watching TV, fell asleep and woke up to e commerce marketing analyst taking his blood pressure. Patient denies any pain or any concerns. Per EMS, was set that he has a history of dementia but has been more altered than usual. Patient denies any concerns at this time. No chest pain or shortness of breath nothing. 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 Any updates have been documented here. Past Medical History Recent Fever: No Clinical Suspicion of Infectio: No New/Unexplained Change in Ment: No Past Medical History: Hypertension, ESRD, Chronic Kidney Disease Other Medical History: 1 kidney - left GOUT Past Surgical History: Back Surgery Other Surgery: kidney removed [id number] fusion clavicle hemangioma back removed Other Last Tetanus: OOD Review of Systems Review of Systems Constitutional: Reports no symptoms EENTM: Reports no symptoms Cardiovascular: Reports no symptoms Respiratory: Reports no symptoms Gastrointestinal: Reports no symptoms Genitourinary: Reports no symptoms Musculoskeletal: Reports no symptoms Integumentary: Reports no symptoms Neurological: Reports no symptoms Psychological: Reports no symptoms Endocrine: Reports no symptoms Hematological/Lymphatic: Reports no symptoms Physical Exam Related Data Allergies: Coded Allergies: No Known Drug Allergies (Verified Allergy, Mild, 10/04/19) Triage Vital Signs Vital Signs Date Time Temp Pulse Resp B/P (MAP) Pulse Ox O2 Delivery O2 Flow Rate FiO2 10/04/19 14:59 98.3 85 18 140/98 99 Physical Exam CONSTITUTIONAL Constitutional: Present well-developed, Present well-nourished HENT HENT: Present normocephalic, Present atraumatic, Present oropharynx clear/moist, Present nose normal HENT L/R: Present left ext ear normal, Present right ext ear normal EYES Eyes: Reports PERRL, Reports conjunctivae normal NECK Neck: Present ROM normal PULMONARY Pulmonary: Present effort normal, Present breath sounds normal CARDIOVASCULAR Cardiovascular: Present regular rhythm, Present heart sounds normal, Present capillary refill normal, Present normal rate GASTROINTESTINAL Abdominal: Present soft, Present nontender, Present bowel sounds normal GENITOURINARY Genitourinary: Present exam deferred SKIN Skin: Present warm, Present dry MUSCULOSKELETAL Musculoskeletal: Present ROM normal NEUROLOGICAL Neurological: Present alert, Present oriented x 3, Present no gross motor or sensory deficits PSYCHOLOGICAL Psychological: Present mood/affect normal, Present judgement normal Results Laboratory Laboratory Laboratory Tests Test 10/04/19 15:14 Urine Color Yellow (YELLOW) Urine Clarity Sl cloudy (CLEAR) Urine pH 5.5 (5 - 7) Urine Specific Mobile 1.025 (1.010-1.025) Urine Protein Negative (NEGATIVE) Urine Glucose (UA) Negative (NEGATIVE) Urine Ketones Negative (NEGATIVE) Urine Blood Negative (NEGATIVE) Urine Nitrite Negative (NEGATIVE) Urine Bilirubin Negative (NEGATIVE) Urine Urobilinogen 0.2 mg/dL (0.2 - 1) Urine Leukocyte Esterase Negative (NEGATIVE) Urine Opiates Screen Positive (NEGATIVE) Urine Methadone Screen Negative (NEGATIVE) Urine Barbiturates Screen Negative (NEGATIVE) Urine Phencyclidine Screen Negative (NEGATIVE) Urine Amphetamines Screen Negative (NEGATIVE) Urine Methamphetamines Screen Negative (NEGATIVE) Urine Benzodiazepines Screen Negative (NEGATIVE) Urine Cocaine Screen Negative (NEGATIVE) Urine Cannabinoids Screen Negative (NEGATIVE) Assessment & Plan Medical Decision Making MDM Patient is an 83-year-old female that was sent here for concern about being more altered than usual. Patient on exam alert and oriented 2, denies any concerns denies any pain. We will rule out any infection and discussed with his . EKG interpreted by me shows normal sinus rhythm, prolonged NE 208, first-degree AV b lock, otherwise rest of intervals normal. Otherwise no acute ST changes. Reassessment Reassessment 1530 Patient continues with no acute abnormality, he went to bathroom multiple times without difficulty. Patient does not have any gross lab abnormalities at this time, no leukocytosis or infection. Will discuss with with prompt follow-up with PCP in 2-3 days. Assessment & Plan Final Impression: (1) Altered mental status Depart Disposition: HOME, SELF-CARE Last Vital Signs Date Time Temp Pulse Resp B/P (MAP) Pulse Ox O2 Delivery O2 Flow Rate FiO2 10/04/19 14:59 98.3 85 18 140/98 99 Home Meds Active Scripts Amlodipine Besylate (AMLODIPINE BESYLATE) 5 Mg Tablet, 5 MG PO DAILY, #30 TAB Prov:WINSOME CHAPADONNA Powell REEL SYSTEM OPERATOR 09/21/19 Reported Medications Tizanidine Hcl (TIZANIDINE HCL) 4 Mg Capsule, PRN 04/21/17 Tamsulosin Hcl (TAMSULOSIN HCL) 0.4 Mg Cap.er.24h 04/21/17 Simvastatin (Zocor) 20 Mg Tablet, 20 MG PO HS 05/22/11 NICHOLAS BURROWS MD Oct 04, 2019 15:51
--- NOTE | 2019-10-04 16:07 | Diagnostic Imaging Report ---
CT BRAIN WO HISTORY: Confusion COMPARISON: None. Technique: Noncontrast axial scans were obtained from skull base to the vertex. Coronal and sagittal reconstructions obtained from the axial data. One or more of the following dose reduction techniques were used: Automated exposure control, adjustment of the mA and/or kV according to patient size, and/or utilization of iterative reconstruction technique. DISCUSSION: Scalp/Skull: Unremarkable. Brain sulci: Mildly prominent. Ventricles: Compensatory dilatation. Extra-axial spaces: No masses or fluid collections. Carotid and vertebral artery calcifications are present. Parenchyma: Mild bilateral deep white matter hypodensity is likely chronic microvascular ischemic change. Otherwise, no masses, hemorrhage, or large vascular territory acute infarct. Dural sinuses: No abnormal densities. Sellar/Suprasellar region: Intact. Skull base: Intact. Incidental findings: None. IMPRESSION: 1. No acute intracranial abnormalities. 2. Mild supratentorial chronic microvascular ischemic change. Generalized cerebral volume loss. Signed by: Dr. Victor M Arreaga M.D. on 10/04/2019 4:04 PM
[2019-10-04 17:03] LABS: BASOPHILS # (AUTO) 0.1 (0.0-0.1); BASOPHILS % 0.7 % (0.0-1.0); EOSINOPHILS # (AUTO) 0.3 (0.0-0.4); EOSINOPHILS % 3.5 % (0.0-6.0); HEMATOCRIT 43.6 % (38.2-49.6); HEMOGLOBIN 13.6 g/dL (14.0-18.0); LYMPHOCYTES # (AUTO) 1.3 (1.0-3.2); MEAN CORPUSCULAR HEMOGLOBIN 29.4 pg (28-32); MEAN CORPUSCULAR HGB CONC 31.2 g/dL (31-35); MEAN CORPUSCULAR VOLUME 94.2 fL (81-99); MONOCYTES # (AUTO) 0.7 (0.2-0.8); MONOCYTES % 9.5 % (4.4-11.3); PLATELET COUNT 176 x10e3/uL (140-360); RED BLOOD COUNT 4.63 x10e6/uL (4.3-5.7); RED CELL DISTRIBUTION WIDTH 12.9 % (11.7-14.4)
[2019-10-04 17:25] LABS: ALBUMIN 3.5 g/dL (3.5-5.0); ALBUMIN/GLOBULIN RATIO 1.1 (0.8-2.0); CALCIUM 9.3 mg/dL (8.4-10.2); CREATININE, SERUM 1.44 mg/dL (0.72-1.25)
--- NOTE | 2019-10-04 17:30 | NUR ---
Dr. Manley on the phone with Makenzie Osborne (patient's ) to talk about discharge instructions
[2019-10-04 18:11] VITALS: BP 126/86
== END 2019-10-04 18:31 | disposition home or self-care (01) ==
LOC: ER 15:13
DX: R41.82 Altered mental status, unspecified (principal); I12.0 Hypertensive chronic kidney disease with stage 5 chronic kidney disease or end stage renal disease; N18.6 End stage renal disease; M10.9 Gout, unspecified
CPT/HCPCS: 36415; 70450; 71045; 80053; 80307; 81001; 84484; 85025; 93005; 99284

== ENCOUNTER 2020-01-19 20:21 | Emergency (ER) | payer MEDICARE ==
[~2020-01-19] VITALS: Ht 177.8 cm; Wt 92.5 kg
[2020-01-19] MEDS ORDERED: DEXAMETHASONE SOD PHOS 10 MG/1 ML VIAL IV STA (20:26)
[2020-01-19] MEDS ORDERED: SODIUM CHLORIDE 0.9% 1000ML 1,000 ML IV STA (20:26)
[2020-01-19] MEDS ORDERED: AZITHROMYCIN 500MG/NS 250 ML 250 ML IV STA (20:26)
[2020-01-19 20:55] LABS: BASOPHILS # (AUTO) 0.1 (0.0-0.1); BASOPHILS % 0.5 % (0.0-1.0); EOSINOPHILS # (AUTO) 0.3 (0.0-0.4); HEMATOCRIT 40.8 % (38.2-49.6); HEMOGLOBIN 12.6 g/dL (14.0-18.0); LYMPHOCYTES # (AUTO) 0.4 (1.0-3.2); LYMPHOCYTES % 3.9 % (18.0-39.1); MEAN CORPUSCULAR HEMOGLOBIN 28.1 pg (28-32); MEAN CORPUSCULAR HGB CONC 30.9 g/dL (31-35); MEAN CORPUSCULAR VOLUME 91.1 fL (81-99); MONOCYTES # (AUTO) 0.8 (0.2-0.8); MONOCYTES % 8.1 % (4.4-11.3); NEUTROPHILS # (AUTO) 8.2 (2.1-6.9); NEUTROPHILS % 84.1 % (38.7-80.0); PLATELET COUNT 254 x10e3/uL (140-360); RED BLOOD COUNT 4.48 x10e6/uL (4.3-5.7); RED CELL DISTRIBUTION WIDTH 14.7 % (11.7-14.4)
[2020-01-19] MEDS ORDERED: ACETAMINOPHEN 325 MG TAB PO STA (20:56)
[2020-01-19 21:14] LABS: ALANINE AMINOTRANSFERASE 16 IU/L (0-55); ALBUMIN 3.7 g/dL (3.5-5.0); ALBUMIN/GLOBULIN RATIO 1.2 (0.8-2.0); ALKALINE PHOSPHATASE 73 IU/L (40-150); ANION GAP 10.5 mmol/L (8-16); BLOOD UREA NITROGEN 27 mg/dL (7-26); BUN/CREATININE RATIO 17 (6-25); CALCIUM 9.6 mg/dL (8.4-10.2); CARBON DIOXIDE 29 mmol/L (22-29); CHLORIDE 104 mmol/L (98-107); CREATINE KINASE 112 IU/L (30-200); CREATININE, SERUM 1.62 mg/dL (0.72-1.25); EST GLOMERULAR FILTRATION RATE 41 ML/MIN (60-); GLUCOSE 111 mg/dL (74-118); SODIUM 138 mmol/L (136-145)
[2020-01-19 21:20] LABS: POTASSIUM 5.5 mmol/L (3.5-5.1)
[2020-01-19 21:47] LABS: ABG PCO2 58 mmHg (35-45); ABG PH 7.28 (7.35-7.45)
[2020-01-19 21:48] LABS: ABG HCO3 28 mmol/L (22-26); ABG PO2 75 mmHg (80-105); ABG TCO2 29
[2020-01-20 00:24] VITALS: BP 120/75
== END 2020-01-20 00:27 | disposition other institution (70) ==
LOC: ER 20:37
DX: U07.1 COVID-19 (principal); R09.02 Hypoxemia; E87.5 Hyperkalemia; I12.0 Hypertensive chronic kidney disease with stage 5 chronic kidney disease or end stage renal disease; N18.6 End stage renal disease
CPT/HCPCS: 36415; 36600; 70450; 71045; 71250; 80053; 82550; 82553; 82805; 83605; 84484; 85025; 87040; 87400; 96374; 99284; J0456; J1100; J7030; U0002